=== PATIENT | female | born 1960 | race Asian ===

== ENCOUNTER 2019-08-03 09:30 | Outpatient (RCR) | payer BC, SELFPAY ==
[2019-08-03 09:41] VITALS: BMI 30.1
== END 2019-09-27 23:59 | disposition home or self-care (01) ==
LOC: ANHDMC 09:30
PROVIDERS: PCP Internal Medicine; Visit Provider Internal Medicine
DX: E11.9 Type 2 diabetes mellitus without complications (principal); Z71.89 Other specified counseling; Z71.3 Dietary counseling and surveillance
CPT/HCPCS: 97803; G0108

== ENCOUNTER → 2020-06-26 12:59 | Outpatient (CLI) | payer BC, SELFPAY ==
--- NOTE | ~2020-06-26 | XR_ITS ---
EXAMINATION: XR abdomen/kub 1V INDICATION: Nephrolithiasis TECHNIQUE: Supine views of the abdomen were obtained on 2 radiographs. COMPARISON: 01/24/2018 FINDINGS: An 8 mm stone projects in the upper pole of the left kidney. Bowel contents project over th e right kidney limiting sensitivity for renal stones. No stones are identified along the expected cou rses of the ureters or urinary bladder. There are no dilated loops of bowel. The visualized lung base s are clear. A moderate volume of colonic stool is present. IMPRESSION: 1. Left nephrolithiasis. Reviewed, dictated and finalized at location A. 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 Left nephrolithiasis.
== END ==
PROVIDERS: PCP Internal Medicine; Visit Provider Internal Medicine Nephrology
DX: N20.0 Calculus of kidney (principal)
CPT/HCPCS: 74018

== ENCOUNTER 2020-07-25 08:50 | Outpatient (CLI) | payer BC, SELFPAY ==
--- NOTE | ~2020-07-25 | US_ITS ---
US abdomen complete EXAMINATION: US Abdomen Complete INDICATION: Thrombocytopenia PROCEDURE: Realtime High Resolution abdomen ultrasound. COMPARISON: No prior studies for comparison FINDINGS: Gallbladder within normal limits. No gallstones, pericholecystic fluid, gallbladder wall t hickening or biliary dilatation. Common bile duct measures 4.8 mm. Liver echotexture within normal limits without focal mass. Pancreas within normal limits. Pancreati c tail is obscured by bowel gas. Spleen is unremarkeable. Renal echotexture is within normal limits bilaterally without hydronephrosis, contour deforming mass or renal stone. Right kidney measures 11.3 cm. Left kidney measures 12.2 cm. Visualized aspects of the aorta and IVC are within normal limits. Portal vein is patent. No sonograph ic Portillo's sign indicated by the technologist. IMPRESSION: 1: Normal abdominal ultrasound. Reviewed, dictated and finalized at location B. 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
== END 2020-07-25 08:51 ==
PROVIDERS: Visit Provider Internal Medicine Hematology & Oncology
DX: D69.59 Other secondary thrombocytopenia (principal)
CPT/HCPCS: 76700

== ENCOUNTER → 2020-08-29 13:09 | Outpatient (CLI) | payer BC, SELFPAY ==
--- NOTE | ~2020-08-29 | MM_ITS ---
EXAMINATION: MM screening [facility] BI w yudy HISTORY: Screening mammogram TECHNIQUE: Craniocaudal and mediolateral oblique 3-D tomosynthesis images were obtained and synthetic 2-D images were generated. CAD analysis was submitted and interpreted. COMPARISON: 03/02/2019, 12/28/2017, 08/31/2016 BREAST PARENCHYMAL COMPOSITION: There are scattered areas of fibroglandular density. FINDINGS: There is no evidence of suspicious mass, calcification, or architectural distortion to sugg est malignancy in either breast. There has been no suspicious interval change. IMPRESSION: 1. No mammographic evidence of malignancy. 2. Recommend routine screening mammography in one year. BI-RADS Category 1: Negative Reviewed, dictated and finalized at location A. TS PHOTOGRAPHER
== END ==
PROVIDERS: PCP Internal Medicine; Visit Provider Obstetrics & Gynecology
DX: Z12.31 Encounter for screening mammogram for malignant neoplasm of breast (principal)
CPT/HCPCS: 77063; 77067

== ENCOUNTER → 2020-12-05 14:43 | Outpatient (CLI) | payer BC, SELFPAY ==
--- NOTE | ~2020-12-05 | XR_ITS ---
EXAMINATION: XR abdomen/kub 1V INDICATION: Calculus of kidney TECHNIQUE: Supine views of the abdomen were obtained on 2 radiographs. COMPARISON: 06/26/2020 FINDINGS: There is a 13 mm calcification projecting over the left kidney upper pole. A 4 mm calcifica tion projects over the lower pole of the left kidney. No stones are identified along the expected cou rses of the ureters or in the urinary bladder. A phlebolith is noted in the left pelvis. The bowel ga s pattern is normal. The lung bases are clear. No dilated loops of bowel are identified. 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 IMPRESSION: 1. Calcifications projecting over the left kidney which could reflect stones. Reviewed, dictated and finalized at location B.
== END ==
PROVIDERS: PCP Internal Medicine; Visit Provider Internal Medicine Nephrology
DX: N20.0 Calculus of kidney (principal)
CPT/HCPCS: 74018

== ENCOUNTER → 2021-01-14 09:22 | Outpatient (CLI) | payer BC, SELFPAY ==
--- NOTE | ~2021-01-14 | XR_ITS ---
EXAMINATION:XR_CERV2-3V_CR DATE: 01/14/2021 09:41 INDICATION: Cervical radiculopathy TECHNIQUE: AP, lateral, and odontoid views of the cervical spine are provided. COMPARISON: 01/19/2019 FINDINGS: Straightening Alignment is normal. The odontoid is intact. No fracture is identified. There is mild l oss of intervertebral disc space height at C5-6. The vertebral body heights are maintained. Preverteb ral soft tissues are normal. There is mild facet and uncovertebral joint osteoarthritis of the lower cervical spine. There are surgical changes of right thyroidectomy. Surgical changes are also noted in the right occipital bone. IMPRESSION: 1. Mild cervical spondylosis without acute findings or significant interval change. Reviewed, dictated and finalized at location A. IMPRESSION: 1. Mild cervical spondylosis without acute findings or significant interval heide nge.
== END ==
PROVIDERS: PCP Internal Medicine; Visit Provider Internal Medicine
DX: M47.812 Spondylosis without myelopathy or radiculopathy, cervical region (principal)
CPT/HCPCS: 72040

== ENCOUNTER → 2021-09-22 10:34 | Outpatient (CLI) | payer BC, SELFPAY ==
--- NOTE | ~2021-09-22 | MM_ITS ---
EXAMINATION: MM screening [facility] BI w yudy HISTORY: Screening TECHNIQUE: Craniocaudal and mediolateral oblique 3-D tomosynthesis images were obtained and synthetic 2-D images were generated. CAD analysis was submitted and interpreted. COMPARISON: No prior mammogram is available for comparison at this institution. BREAST PARENCHYMAL COMPOSITION: There are scattered areas of fibroglandular density. FINDINGS: There is no evidence of suspicious mass, calcification, or architectural distortion to sugg est malignancy in either breast. There has been no suspicious interval change. IMPRESSION: 1. No mammographic evidence of malignancy. 2. Recommend routine screening mammography in one year. BI-RADS Category 1: Negative Reviewed, dictated and finalized at location A. 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
== END ==
PROVIDERS: PCP Internal Medicine; Visit Provider Obstetrics & Gynecology
DX: Z12.31 Encounter for screening mammogram for malignant neoplasm of breast (principal)
CPT/HCPCS: 77063; 77067

== ENCOUNTER → 2021-09-22 10:35 | Outpatient (CLI) | payer BC, SELFPAY ==
--- NOTE | ~2021-09-22 | DEXA_ITS ---
Bone Density Report Name: JOE CARRERA Age: 60 Sex: Female Ethnicity: Date of : 1960 Indication: osteopenia; rheumatoid arthritis; postmenopausal Referring Provider: LOVELY MONCADA Study: Bone densitometry was performed. Exam Date: September 22, 2021 Accession number: [id number] Bone Density: Region BMD T-score Z-score Classification AP Spine (L1-L4) 0.820 -2.1 -0.7 Osteopenia Femoral Neck (Left) 0.703 -1.3 0.0 Osteopenia Total Hip (Left) 0.850 -0.8 0.2 Normal Femoral Neck (Right) 0.711 -1.2 0.0 Osteopenia Total Hip (Right) 0.820 -1.0 -0.1 Normal Total Hip Mean 0.835 -0.9 0.1 Normal World Health Organization criteria for BMD impression classify patients as: Normal (T-score at or above -1.0), Osteopenia (T-score between -1.0 and -2.5), or Osteoporosis (T-score at or below -2.5). 10-year Fracture Risk(1): Major Osteoporotic Fracture 5.1% Hip Fracture 0.4% Reported Risk Factors: [place] (), Neck BMD=0.703, BMI=29.3, rheumatoid arthritis (1) FRAX(R) Version 3.08. Fracture probability calculated for an untreated patient. Fracture probability may be lower if the patient has received treatment. Previous Exams: Region Exam Age BMD T-score BMD Change BMD Change Date g/cm2 vs Baseline vs Previous AP Spine(L1-L4) 09/22/2021 60 0.820 -2.1 0.015 0.015 03/06/2019 58 0.806 -2.2 Total Hip(Left) 09/22/2021 60 0.850 -0.8 -0.013 -0.013 03/06/2019 58 0.863 -0.6 Total Hip(Right) 09/22/2021 60 0.820 -1.0 -0.018 -0.018 03/06/2019 58 0.837 -0.9 *Denotes significance at 95% confidence level, LSC for AP Spine = 0.022 g/cm2, LSC for Total Hip = 0.027 g/cm2 Clinical Information Provided by Patient: Has rheumatoid arthritis Has used the following medications: Vitamin D Patient maximum height was 61.2 Menopause Age: 46 Does not regularly consume dairy products Onset of menses at age 14 Number of children 3 Impression: The patient has low bone mass, based on the Total Spine T-score. The patient has an estimated ten-year risk of hip fracture of 0.4% and an estimated ten-year risk of major fracture of 5.1%, based on the WHO FRAX algorithm. No significant bone loss was observed. Discussion: BONE DENSITY IS LOW AT ONE OR MORE SKELETAL SITES. This patient's lowest T-score is low at one or more skeletal sites. It meets the World Health Organization's (WHO) criteria for ?low bon
== END ==
PROVIDERS: Visit Provider Internal Medicine
DX: Z78.0 Asymptomatic menopausal state (principal); M85.88 Other specified disorders of bone density and structure, other site; M85.852 Other specified disorders of bone density and structure, left thigh; M85.851 Other specified disorders of bone density and structure, right thigh
CPT/HCPCS: 77080

== ENCOUNTER → 2021-11-20 13:01 | Outpatient (CLI) | payer BC, SELFPAY ==
--- NOTE | ~2021-11-20 | XR_ITS ---
XR abdomen/kub 1V DATE: 11/20/2021 13:52 INDICATION: Kidney calculus TECHNIQUE: AP projection, 2 views COMPARISON: KUB FINDINGS: Small calcifications project over the upper pole and lower pole left kidney, likely due to left nephrolithiasis. Prominent fecal and gas shadows overlie the right renal silhouette, limiting ev aluation. Noncontrast CT abdomen pelvis would be more sensitive and accurate for detection of urinary tract calculi. The psoas shadows are intact. No visceromegaly is evident. There is a prominent amount fecal material in the right colon. No bowel obstruction is evident. The lung bases are clear. IMPRESSION: Suspected left nephrolithiasis Prominent amount fecal material in the right colon Reviewed, dictated and finalized at Location A. Reviewed, dictated and finalized at location A.
== END ==
PROVIDERS: PCP Internal Medicine; Visit Provider Internal Medicine Nephrology
DX: N20.0 Calculus of kidney (principal)
CPT/HCPCS: 74018

== ENCOUNTER 2021-12-09 00:26 | Day surgery (SDC) | payer BC, SELFPAY ==
[2021-11-24 14:13] VITALS: BMI 29.5
[2021-12-09 07:52] VITALS: BP 149/62; PULSE 60; RESP 18; TEMP 36.3; O2SAT 98
[2021-12-09] MEDS: LACTATED RINGERS 1,000 ML 150 ML IV CONT (08:07)
--- NOTE | 2021-12-09 08:22 | WPDANESEPPF ---
Anes - Initial Pre Proc Eval Procedure: Operation Date: 12/09/21 09:00 Proposed Procedures p Esophagogastroduodenoscopy - Ethan Holden MD Date/Time: 12/09/21 08:22 Surgeon: Ethan Holden MD Pre Op Diagnosis: GERD Patient Data Age: 61 Gender: F Height: 1.55 m Weight: 71.4 kg Last Vital Signs Temp 36.3 C L 12/09/21 07:52 Pulse 60 12/09/21 07:52 Resp 18 12/09/21 07:52 BP 149/62 H 12/09/21 07:52 Pulse Ox 98 12/09/21 07:52 Allergies Allergy/AdvReac Type Severity Reaction Status Date / Time aspirin AdvReac Mild Abdominal Verified 12/09/21 07:50 discomfort Home Medications Medication Instructions Recorded Confirmed Type cholecalciferol (vitamin D3) 100 4,000 unit PO DAILY 08/09/19 11/24/21 History mcg (4,000 unit) capsule leflunomide 20 mg tablet 20 mg PO DAILY 01/14/21 11/24/21 History cyanocobalamin (vitamin B-12) 100 100 mcg PO DAILY 05/16/21 11/24/21 History mcg tablet allopurinol 300 mg tablet See Rx Instructions .ROUTE 07/07/21 11/24/21 Rx .COMPLEX #90 tablet hydrochlorothiazide 12.5 mg tablet 12.5 mg PO DAILY #90 tablet 10/14/21 11/24/21 Rx omeprazole 40 mg capsule,delayed 40 mg PO DAILY #30 cap 10/14/21 11/24/21 Rx release rosuvastatin 20 mg tablet See Rx Instructions .ROUTE 10/29/21 11/24/21 Rx .COMPLEX #90 tablet amlodipine 2.5 mg PO DAILY 11/24/21 11/24/21 History Patient hx anesthesia problems: none Family hx anesthesia problems: none Results Review: All pre-operative results and documents have been reviewed as part of the pre-operative evaluation. [facility] Past Medical History Medical History (Updated 12/08/21 @ 14:03 by Fish Rodriguez DO) Dyslipidemia associated with type 2 diabetes mellitus Essential hypertension GERD (gastroesophageal reflux disease) Megaloblastic anemia Nonalcoholic steatohepatitis Family History Family History Sibling Patient's sister is in good health Patient's brother is in good health Father Family history of malignant neoplasm Patient's father is Mother Family history of malignant neoplasm Patient's mother is Social History Social History Smoking status: Never smoker Second hand tobacco smoke exposure: No Alcohol intake: never Substance use: never Substance use type: does not use Living arrangements: with family Additional living arrangements comments: spouse and daughter Spiritual care concerns: No Anes - Eval Final PreProcedure Day of Procedure 12/09/21 08:22 Patient weight: overweight Heart: regular rate and rhythm Lungs: clear to auscultation and normal air movement Airway: Mallampati scale class II Neurological: alert and oriented Last oral intake: >/= 8 hours ASA classification: III Emergent: no Anesthetic plan: proceed Anesthesia type and monitoring: general GIVS and standard monitoring Results Review: All pre-operative results and documents have been reviewed as part of the pre-operative evaluation. Informed Consent: The patient's anesthetic plan and its attendant risks and benefits were discussed with the patient/family/POA. Questions were solicited and answers provided to the satisfaction of the patient/family/POA.
--- NOTE | 2021-12-09 08:26 | WPDGICN ---
Assessment and Plan Assessment and plan (1) GERD (gastroesophageal reflux disease): Qualifiers: Esophagitis presence: esophagitis presence not specified Qualified Code(s): K21.9 - Gastro-esophageal reflux disease without esophagitis Code(s): K21.9 - Gastro-esophageal reflux disease without esophagitis Status: Acute Assessment and Plan: Patient has vague abdominal pain along with substernal burning after eating that appears to suggest acid reflux. She has had a good response to omeprazole 40mg p.o. daily. An EGD is requested will be performed. Recommend long-term placing patient on long list amount of medications that work. She may benefit from omeprazole 20mg p.o. daily or alternatively famotidine 20mg p.o. daily further recommendations will be given after endoscopy. Additional Plan Because of patient's age screening colonoscopy electively at 10 year intervals is advised initially. This can be arranged electively. If not already accomplished. GI Consult Note Consult date/time: 12/09/21 08:26 HPI: Tiny Garcia is a 61 year old female Presents for EGD. Patient reports for several months has had substernal burning with eating. She has rather diffuse abdominal pain that hurts at various sports in her abdomen. She also will notice some nausea. She took [id number] antacids for several days and about a month and a half ago was started on omeprazole 40mg p.o. daily. This has helped alleviate much of her discomfort. Patient denies any dysphagia weight loss or bleeding. Her family history is noncontributory. Review of Systems Review of Systems: All systems reviewed & are unremarkable except as noted in HPI and below PMFSH Past Medical History Medical History (Updated 12/08/21 @ 14:03 by Fish Rodriguez DO) Dyslipidemia associated with type 2 diabetes mellitus Essential hypertension GERD (gastroesophageal reflux disease) Megaloblastic anemia Nonalcoholic steatohepatitis Family History Family History Sibling Patient's sister is in good health Patient's brother is in good health Father Family history of malignant neoplasm Patient's father is Mother Family history of malignant neoplasm Patient's mother is Social History Social History Smoking status: Never smoker Second hand tobacco smoke exposure: No Alcohol intake: never Substance use: never Substance use type: does not use Living arrangements: with family Additional living arrangements comments: spouse and daughter Spiritual care concerns: No Meds Home Medications and Allergies Home Medications Medication Instructions Recorded Confirmed Type cholecalciferol (vitamin D3) 100 4,000 unit PO DAILY 08/09/19 11/24/21 History mcg (4,000 unit) capsule leflunomide 20 mg tablet 20 mg PO DAILY 01/14/21 11/24/21 History cyanocobalamin (vitamin B-12) 100 100 mcg PO DAILY 05/16/21 11/24/21 History mcg tablet allopurinol 300 mg tablet See Rx Instructions .ROUTE 07/07/21 11/24/21 Rx .COMPLEX #90 tablet hydrochlorothiazide 12.5 mg tablet 12.5 mg PO DAILY #90 tablet 10/14/21 11/24/21 Rx omeprazole 40 mg capsule,delayed 40 mg PO DAILY #30 cap 10/14/21 11/24/21 Rx release rosuvastatin 20 mg tablet See Rx Instructions .ROUTE 10/29/21 11/24/21 Rx .COMPLEX #90 tablet amlodipine 2.5 mg PO DAILY 11/24/21 11/24/21 History Allergies Allergy/AdvReac Type Severity Reaction Status Date / Time aspirin AdvReac Mild Abdominal Verified 12/09/21 07:50 discomfort Vital Signs Vital Signs - 24 hr 12/09/21 07:52 Temperature 97.3 F L Pulse Rate 60 Respiratory Rate 18 Blood Pressure 149/62 H Pulse Oximetry 98 Exam Narrative: Physical exam reveals patient be alert. Vital signs stable. HEENT exam is unremarkable. Patient is anict
[2021-12-09 09:18] VITALS: BP 123/73; PULSE 58; RESP 22; O2SAT 96
[2021-12-09 09:28] VITALS: BP 137/74; PULSE 58; RESP 17; O2SAT 97
[2021-12-09 09:38] VITALS: BP 158/85; PULSE 57; RESP 22; O2SAT 98
== END 2021-12-09 09:48 | disposition home or self-care (01) ==
PROVIDERS: PCP Internal Medicine; Visit Provider Internal Medicine Gastroenterology
PROC: 0DJ08ZZ Inspection of Upper Intestinal Tract, Via Natural or Artificial Opening Endoscopic (ICD-10-PCS; CPT 43235; principal; 2021-12-09 09:00)
DX: K21.9 Gastro-esophageal reflux disease without esophagitis (principal); K31.84 Gastroparesis; I10 Essential (primary) hypertension; E11.9 Type 2 diabetes mellitus without complications; K75.81 Nonalcoholic steatohepatitis (NASH); E78.5 Hyperlipidemia, unspecified
CPT/HCPCS: 43239; 87081; J2704; J7120

== ENCOUNTER 2022-02-01 11:38 | Emergency (ER) | payer BC, SELFPAY ==
[2022-02-01] VITALS (28 sets, daily range): BP systolic 97–167; BP diastolic 61–90; PULSE 75–85; RESP 16–32; TEMP 36.8; O2SAT 90–99
--- NOTE | ~2022-02-01 | CT_ITS ---
EXAMINATION: CT abdomen pelvis wo con DATE: 02/01/2022 17:30 INDICATION: abd pain TECHNIQUE: Computed tomography (CT) of the abdomen and pelvis was performed without intravenous contr ast. Automated exposure control and iterative reconstruction technique were employed. The dose-length product was 498.80 mGy-cm. COMPARISON: 01/11/2018. FINDINGS: Lower thorax: Cardiomegaly. Liver: Normal. Biliary/Gallbladder: Cholelithiasis. No bile duct dilation. Pancreas: No mass or duct dilation. Spleen: Normal. Adrenals:Right adrenal myelolipoma. Kidneys: Bilateral medullary nephrocalcinosis. GI tract: No small or large bowel dilation. Appendix not visualized Mesentery/Peritoneum: No ascites, mass, or free air. Retroperitoneum: No mass. Atherosclerotic calcifications. Pelvis: Pelvic organs are within normal limits. Soft Tissues: Soft tissues and body wall unremarkable. Bones: No acute osseous finding. IMPRESSION: No acute abdominopelvic process detected. Reviewed, dictated and finalized at location K.
--- NOTE | ~2022-02-01 | XR_ITS ---
EXAMINATION: XR chest 1V portable Exam Date/Time: 02/01/2022 12:50 CDT HISTORY: cough COVID + FEVER BODY ACHES Comparison: None available. RESULT: Lines, tubes, and devices: None. Lungs and pleura: Clear. Cardiomediastinal silhouette: Unremarkable cardiomediastinal silhouette. Other: No acute osseous or upper abdominal finding. IMPRESSION: No acute cardiopulmonary process. Reviewed, dictated and finalized at location K.
[2022-02-01] MEDS: ONDANSETRON INJ 4 MG/2 ML VIAL IV PUSH (12:46)
[2022-02-01] MEDS: SODIUM CHLORIDE 0.9% IV 1,000 ML 999 ML IV CONT (12:47)
--- NOTE | 2022-02-01 12:49 | ED.GENADULT ---
HPI - General Adult General Chief complaint: Upper Respiratory Infection Stated complaint: COVID Positive Time Seen by Provider: 02/01/22 12:01 Source: RN notes reviewed History of Present Illness HPI narrative: Patient presents emergency department from home for COVID-19. Patient states she began to feel sick yesterday with a cough that is nonproductive as well and has a fever bilateral ear pain and nausea states she took a home COVID test yesterday and it was positive and also states several members of her family tested positive patient states that she came today for further evaluation as she does have several chronic medical conditions she states that she last took Tylenol at approximately 745 this morning she denies any chest pain or shortness of breath does states she has nausea but denies any abdominal pain vomiting or diarrhea. Patient also notes a mild frontal headache with symptoms Related Data Home Medications Medication Instructions Recorded Confirmed cholecalciferol (vitamin D3) 100 4,000 unit PO DAILY 08/09/19 11/24/21 mcg (4,000 unit) capsule leflunomide 20 mg tablet 20 mg PO DAILY 01/14/21 11/24/21 cyanocobalamin (vitamin B-12) 100 100 mcg PO DAILY 05/16/21 11/24/21 mcg tablet amlodipine 2.5 mg tablet 2.5 mg PO DAILY 11/24/21 11/24/21 calcium carbonate 600 mg calcium 600 mg PO DAILY 01/07/22 (1,500 mg) tablet (Calcium) magnesium oxide 200 mg PO BID 01/07/22 potassium citrate 10 mEq (1,080 2,160 mg PO BID 01/07/22 mg) tablet,extended release Allergies Allergy/AdvReac Type Severity Reaction Status Date / Time aspirin AdvReac Mild Abdominal Verified 02/01/22 11:49 discomfort Review of Systems Review of Systems: Gen.: Reports fevers and malaise Eyes: Denies eye pain or visual change ENT: Reports nasal congestion and bilateral ear pain Respiratory: Denies shortness of breath reports cough CV: Denies chest pain or palpitations GI: Denies abdominal pain emesis or diarrhea reports nausea Musculoskeletal: Denies back pain or muscle pain Neuro: Denies numbness, tingling, weakness or focal weakness, headache Skin: Denies rash Except as documented, all other systems reviewed and negative PMFSH Past Medical History Medical History Dyslipidemia associated with type 2 diabetes mellitus Essential hypertension GERD (gastroesophageal reflux disease) Megaloblastic anemia Nonalcoholic steatohepatitis Family History Family History Sibling Patient's sister is in good health Patient's brother is in good health Father Family history of malignant neoplasm Patient's father is Mother Family history of malignant neoplasm Patient's mother is Social History Social History Smoking status: Never smoker Second hand tobacco smoke exposure: No Alcohol intake: never Substance use: never Substance use type: does not use Additional living arrangements comments: spouse and daughter Spiritual care concerns: No Exam Narrative: APPEARANCE: No acute distress, nontoxic, resting in bed EYES: EOMI HEENT: Normocephalic, atraumatic, TMs clear bilaterally RESPIRATORY: No respiratory distress Clear to auscultation bilaterally with no rhonchi wheezing or rales. CARDIOVASCULAR: Regular rate and rhythm without murmurs rubs or gallops. ABDOMINAL: Soft, nontender, nondistended, no rebound or guarding MUSCULOSKELETAl: Moves all extremities. No clubbing, cyanosis or edema. NEURO: Awake and alert. Following commands, speech normal, no focal deficits SKIN:: Warm, dry. No rashes lesions or abrasions PSYCHIATRIC: Normal affect/mood, Course Course Emergency Course: Patient now noting some increased abdominal pain tender in bilateral upper abdomen will give Toradol and CT abdomen pelvis Patient stat
[2022-02-01 12:52] LABS: Basophils Percent Auto 0.5 % (0.2-1.2); Eosinophils Absolute Auto 0.1 K/mm3 (0-0.3); Eosinophils Percent Auto 1.2 % (0-4.4); Hemoglobin 12.7 g/dL (12.0-15.0); Immature Granulocyte Absolute 0.02 K/mm3 (0.00-0.031); Immature Granulocyte Percent A 0.3 % (0-0.5); Lymphocytes Absolute Auto 0.78 K/mm3 (0.9-3.2); Lymphocytes Percent Auto 13.2 % (18.3-44.2); Mean Corpuscular HGB Conc 32.6 g/dl (32-36); Mean Corpuscular Hemoglobin 29.7 pg (26-34); Mean Corpuscular Volume 91.3 fl (80-100); Mean Platelet Volume 11.1 fl (7.4-10.4); Monocytes Absolute Auto 0.8 K/mm3 (0.1-0.6); Monocytes Percent Auto 13.9 % (2.6-8.5); Neutrophils Absolute Auto 4.2 K/mm3 (1.3-6.7); Neutrophils Percent Auto 70.9 % (45.5-73.1); Platelet Count Result 81 k/mm3 (150-375); Red Blood Count 4.27 M/mm3 (4.2-5.4); Red Cell Distribution Width 14.4 % (11.5-14.5); White Blood Count 5.9 K/mm3 (4.5-10.0)
[2022-02-01 13:02] LABS: Prothrombin Time 12.5 Seconds (11.1-14.7)
[2022-02-01 13:03] LABS: Alanine Aminotransferase 31 U/L (6-35); Albumin Level 4.3 g/dL (3.5-5.1); Alkaline Phosphatase 63 U/L (38-126); Anion Gap 5 mmol/L (8-16); Aspartate Amino Transferase 42 U/L (14-36); Bilirubin,Total 1.7 mg/dL (0.2-1.3); Blood Urea Nitrogen 12 mg/dL (7-17); Carbon Dioxide 30 mmol/L (22-30); Chloride 99 mmol/L (98-107); Estimated CRCL calculation 90 ml/min; Estimated Glomerular Filt Rate > 60; Glucose 134 mg/dL (65-110); Lactate Dehydrogenase 573 U/L (313-618); Partial Thromboplastin Time 28.7 SECONDS (22.3-36.8); Potassium 3.3 mmol/L (3.4-5.0); Sodium 134 mmol/L (137-145)
[2022-02-01] MEDS: POTASSIUM CHLORIDE 20 MEQ TABLET PO (14:13)
[2022-02-01] MEDS: KETOROLAC 30 MG/ML VIAL (*BKC) IV PUSH (17:08)
[2022-02-01 17:42] LABS: Lipase 93 U/L (23-300)
[2022-02-01 17:45] LABS: Appearance Urine Clear (Clear); Bilirubin Urine Negative (Negative); Blood Urine Negative (Negative); Color Urine Yellow (Yellow); Glucose Urine UA Negative (Negative); Ketones Urine Negative (Negative); Leukocyte Esterase Ur Negative LEU/UL (Negative); Nitrate Urine Negative (Negative); Protein Urine Negative (Negative); Specific Grav Ur 1.015 (1.001-1.035); Urobilinogen Urine 0.2 mg/dL (<2.0); pH Urine 7.5 (5.0-9.0)
[2022-02-01 17:47] LABS: Add Urine Microscopic? NO
[2022-02-01] MEDS: ALBUTEROL SULFATE (*SP) AEROSOL 1 PUFF 2 PUFF INHALATION (18:45)
== END 2022-02-01 19:36 | disposition home or self-care (01) ==
PROVIDERS: Emergency Provider Emergency Medicine; PCP Internal Medicine
DX: U07.1 COVID-19 (principal); E11.69 Type 2 diabetes mellitus with other specified complication; E78.5 Hyperlipidemia, unspecified; I10 Essential (primary) hypertension; K21.9 Gastro-esophageal reflux disease without esophagitis; D53.1 Other megaloblastic anemias, not elsewhere classified; K75.81 Nonalcoholic steatohepatitis (NASH)
CPT/HCPCS: 36415; 71045; 74176; 80053; 81003; 83615; 83690; 85025; 85610; 85730; 86140; 96361; 96374; 96375; 99284; A9270; J1885; J2405; J7030

== ENCOUNTER 2022-02-02 14:38 | Outpatient (RCR) | payer BC, SELFPAY ==
[2022-02-02] MEDS: ACETAMINOPHEN 325 MG TABLET 650 MG PO (14:56)
[2022-02-02] MEDS: FAMOTIDINE 20 MG TABLET PO (14:56)
[2022-02-02] MEDS: diphenhydrAMINE HCl CAP 25 MG CAPSULE PO (14:56)
[2022-02-02 14:59] VITALS: BP 131/69; PULSE 77; TEMP 36.1; O2SAT 98
[2022-02-02] MEDS: BEBTELOVIMAB 175 MG/2 ML VIAL IV PUSH (15:11)
[2022-02-02 15:47] VITALS: BP 132/58; PULSE 73; O2SAT 98
== END 2022-02-02 16:00 | disposition home or self-care (01) ==
LOC: AMCINF 14:38
PROVIDERS: Referring Provider Internal Medicine; Visit Provider Internal Medicine Hematology & Oncology
DX: U07.1 COVID-19 (principal)
CPT/HCPCS: A9270; M0222; Q0222

== ENCOUNTER 2022-02-17 07:33 | Outpatient (CLI) | payer BC, SELFPAY ==
--- NOTE | ~2022-02-17 | NM_ITS ---
EXAM: NM gastric emptying study DATE: 02/17/2022 13:10 CDT INDICATION: Functional dyspepsia TECHNIQUE: A gastric emptying study was performed using the methodology of Shawn NUÑEZ, et al. J Nucl Med 2007; 48:568-572. The patient was given a meal consisting of 2 scrambled eggs labeled with 0.94 mCi Tc-99m sulfur colloid, 2 slices of toast, two packages of jam, and approximately 120 mL of water. Simultaneous anterior and posterior 1-min images of the abdomen were obtained with the patient supin e at multiple time points over a total period of 4 hours. The geometric mean of anterior and posterio r views was determined, and the percentage retention was calculated for each time point. COMPARISON: CT dated 02/01/2022. FINDINGS: Gastric retention of the radiotracer-labeled meal was 56%, 36%, and 10% at the 1-hour, 2-h our, and 4-hour time points, respectively. With this technique, apparent rapid gastric emptying is mancera ggested by <30% gastric retention at 1 hour. Delayed gastric emptying is defined by gastric retention of >90% at 1 hour, >60% retention at 2 hours, or >10% retention at 4 hours. IMPRESSION: 1. Normal gastric emptying. Reviewed, dictated and finalized at location A. IMPRESSION: 1. Normal gastric emptying.
== END 2022-02-17 07:34 | disposition home or self-care (01) ==
PROVIDERS: PCP Internal Medicine; Visit Provider Internal Medicine Gastroenterology
DX: K30 Functional dyspepsia (principal)
CPT/HCPCS: 78264; A9541

== ENCOUNTER → 2022-06-08 12:12 | Outpatient (CLI) | payer BC, SELFPAY ==
--- NOTE | ~2022-06-08 | XR_ITS ---
EXAMINATION: XR abdomen/kub 1V INDICATION: Bilateral kidney stones, follow-up TECHNIQUE: Supine views of the abdomen were obtained on 2 radiographs. COMPARISON: 11/20/[address] dated 02/01/2022 FINDINGS: Bilateral medullary nephrocalcinosis seen on CT is not well demonstrated. There is a 3 mm s tone of the left kidney lower pole. The bowel gas pattern is normal. The visualized lung bases are cl ear. IMPRESSION: 1. Left nephrolithiasis. Reviewed, dictated and finalized at location A. IMPRESSION: 1. Left nephrolithiasis.
== END ==
PROVIDERS: PCP Internal Medicine; Visit Provider Internal Medicine Nephrology
DX: N20.0 Calculus of kidney (principal); I10 Essential (primary) hypertension
CPT/HCPCS: 74018

== ENCOUNTER 2022-07-07 10:02 | Outpatient (CLI) | payer BC, SELFPAY ==
--- NOTE | 2022-07-07 11:30 | NEURO_ITS ---
Impression: # Complains of right upper extremity pain. History of Trigeminal neuralgia. # Normal nerve conduction study. # Normal needle/EMG exam including biceps and triceps. # Clinical correlation recommended. Motor Nerve Conduction Upper Extremities Median Nerve Conduction Velocity (m/sec) Terminal Latency (msec) Response Voltage(mV) Elbow-Wrist Wrist Elbow Wrist Right 58 2.8 5 6 Left Ulnar Nerve Conduction Velocity (m/sec) Terminal Latency (msec) Response Voltage(mV) Above Elbow Below Elbow Wrist Above Elbow Below Elbow Wrist Right 58 2.3 3 5 Left F-Wave Latency Median (ms) Ulnar (ms) Right 24.7 25.4 Left Sensory Nerve Conduction Upper Extremities Median Nerve Stimulation Terminal Latency (msec) Wrist/Digit Response Voltage (uV) Wrist Right 2.8/2.8 41/56 Left Ulnar Nerve Stimulation Terminal Latency (msec) Wrist/Digit Response Voltage (uV) Wrist Right 2.1 41 Left Radial Nerve Terminal Latency (msec) Response Voltage(mV) Right 2.0 21 Left Left Right Muscles Examined Fibrillation Fasciculation Scarcity Voltage Duration Left Right Left Right Left Right Left Right Left Right X Deltoid X Biceps X Brachioradialis X Triceps X Pronator Teres X Ext Indicis X Ext Digitorum X Abd Poll Brev X 1st Dorsal Interosseus X Abd Dig Min MTDD
== END 2022-07-07 10:03 | disposition home or self-care (01) ==
PROVIDERS: PCP Internal Medicine; Visit Provider Internal Medicine
DX: R20.2 Paresthesia of skin (principal)
CPT/HCPCS: 95886; 95909

== ENCOUNTER 2022-11-09 09:57 | Outpatient (CLI) | payer BC, SELFPAY ==
--- NOTE | 2022-11-09 10:13 | ECG_ITS ---
Measurements Intervals [place] Rate: 64 P: 59 [place]: 208 QRS: -11 QRSD: 80 T: 14 QT: 422 QTc: 438 Interpretive Statements SINUS RHYTHM VENTRICULAR PREMATURE COMPLEXES POOR R WAVE PROGRESSION, ANTERIOR LEADS CONSIDER INFERIOR INFARCT, AGE INDETERMINATE BASELINE WANDER- AVR, AVL, AVF, V1, V4-V6 ABNORMAL ECG NO PREVIOUS ECG AVAILABLE FOR COMPARISON Electronically Signed On 11-09-2022 11:09:06 CDT by Gregor Guzman D.O.
--- NOTE | 2022-11-11 15:19 | WPDHOLTEREM ---
Holter/Event Monitor Holter/Event Monitor Date of procedure: 11/09/22 Holter/Event Procedure: 48 Hr Holter Monitor Indications: Palpitations Conclusion: 1. 48 hour holter monitor on 11/09/22. 2. Predominant rhythm is sinus rhythm. HR range 51-101 bpm; average HR 70 bpm. 3. There are 59 premature supraventricular complexes. There is 1 atrial tachycardia at 140 bpm lasting 6 beats. 4. There are 3,579 premature ventricular complexes and 40 ventricular trigeminy. No ventricular tachycardia. 5. No sinoatrial or atrioventricular blocks. No significant pauses greater than 2 seconds. 6. Patient reports symptoms of hard beats which demonstrate sinus rhythm, HR range 58-81 bpm and 1 PVC.
== END 2022-11-09 09:58 | disposition home or self-care (01) ==
PROVIDERS: PCP Internal Medicine; Visit Provider Nurse Practitioner Family
DX: R00.2 Palpitations (principal); R94.31 Abnormal electrocardiogram [ECG] [EKG]
CPT/HCPCS: 93005; 93225; 93226

== ENCOUNTER → 2022-12-08 12:21 | Outpatient (CLI) | payer BC, SELFPAY ==
--- NOTE | ~2022-12-08 | MM_ITS ---
EXAMINATION: MM screening [facility] BI w yudy HISTORY: Screening mammogram TECHNIQUE: Craniocaudal and mediolateral oblique 3-D tomosynthesis images were obtained and synthetic 2-D images were generated. CAD analysis was submitted and interpreted. COMPARISON: 09/22/2021, 08/29/2020, 03/02/2019 BREAST PARENCHYMAL COMPOSITION: There are scattered areas of fibroglandular density. FINDINGS: No suspicious mass, calcification, or architectural distortion are identified in either alex ast to suggest malignancy. There has been no suspicious interval change. IMPRESSION: 1. No mammographic evidence of malignancy. 2. Recommend routine screening mammography in one year. BI-RADS Category 1: Negative Reviewed, dictated and finalized at location A.
== END ==
PROVIDERS: PCP Internal Medicine; Visit Provider Obstetrics & Gynecology
DX: Z12.31 Encounter for screening mammogram for malignant neoplasm of breast (principal)
CPT/HCPCS: 77063; 77067

== ENCOUNTER 2023-01-04 14:29 | Outpatient (CLI) | payer BC, SELFPAY ==
--- NOTE | ~2023-01-04 | XR_ITS ---
EXAMINATION: XR mandible min 4V DATE: 01/04/2023 15:03 INDICATION: Right jaw pain. TECHNIQUE: 6 views of the mandible were obtained. COMPARISON: Sinuses CT 09/02/2016 FINDINGS: Bone alignment is normal. No fracture. The temporomandibular joints are unremarkable. There are changes of right occipital craniotomy. IMPRESSION: 1. No etiology for the patient's symptoms. Reviewed, dictated and finalized at location A.
== END 2023-01-04 14:30 ==
LOC: MICIMG 14:33
PROVIDERS: PCP Family Medicine; Visit Provider Family Medicine
DX: R68.84 Jaw pain (principal); M54.10 Radiculopathy, site unspecified
CPT/HCPCS: 70110

== ENCOUNTER → 2023-04-03 10:33 | Outpatient (CLI) | payer BC, SELFPAY ==
--- NOTE | ~2023-04-03 | MR_ITS ---
EXAMINATION: MR shoulder RT wo con DATE: 04/03/2023 11:43 INDICATION: Right shoulder pain. TECHNIQUE: Magnetic resonance imaging (MRI) of the right shoulder was performed without intravenous c ontrast. Sequences included axial PD-weighted FS FSE, coronal oblique PD-weighted FS FSE and T2-weigh sacha FS FSE, and sagittal oblique T2-weighted FS FSE and T1-weighted FSE. COMPARISON: None. FINDINGS: Coracoacromial arch: The acromion undersurface is curved in morphology (type II). There is moderate acromioclavicular join t osteoarthritis. There is mild subacromial/subdeltoid bursitis. Rotator cuff: There is severe anterior supraspinatus tendinopathy at its distal attachment. There is mild infraspin atus tendinopathy. Teres minor tendon is normal. Subscapularis tendon is normal. There is no asymmetr ic fatty atrophy of the rotator cuff muscle bellies. Biceps tendon and glenoid labrum: Biceps tendon is in bicipital groove. Intra-articular biceps tendon is normal. The glenoid labrum is normal. Fluid: There is a small glenohumeral joint effusion. Bones/cartilage: Glenoid cartilage is normal. Humeral head cartilage is normal. IMPRESSION: 1. Focal severe tendinopathy of anterior supraspinatus tendon. 2. Moderate acromioclavicular joint osteoarthritis. 3. Mild subacromial/subdeltoid bursitis. 4. Small glenohumeral joint effusion. Reviewed, dictated and finalized at location E.
== END ==
PROVIDERS: PCP Internal Medicine Hematology & Oncology; Visit Provider Nurse Practitioner Family
DX: N20.0 Calculus of kidney (principal); I10 Essential (primary) hypertension; M75.51 Bursitis of right shoulder; M19.011 Primary osteoarthritis, right shoulder; M25.411 Effusion, right shoulder
CPT/HCPCS: 73221

== ENCOUNTER 2023-08-19 14:11 | Outpatient (CLI) | payer BC, SELFPAY ==
--- NOTE | ~2023-08-19 | XR_ITS ---
EXAMINATION: XR chest 2V 08/19/2023 15:23 INDICATION: Dyspnea PROCEDURE: 2 view chest COMPARISON: 02/01/2022 FINDINGS: The lungs are clear. The cardiomediastinal silhouette is within normal limits. There are no pleural effusions. There is no pneumothorax suspected. IMPRESSION: 1: NO ACUTE CARDIOPULMONARY DISEASE. Reviewed, dictated and finalized at location L. O STUDIO ASSISTANT
== END 2023-08-19 14:12 ==
LOC: MICIMG 14:12
PROVIDERS: PCP Family Medicine; Visit Provider Family Medicine
DX: R06.00 Dyspnea, unspecified (principal)
CPT/HCPCS: 71046

== ENCOUNTER 2023-08-19 14:14 | Outpatient (CLI) | payer BC, SELFPAY ==
--- NOTE | ~2023-08-19 | XR_ITS ---
EXAMINATION: XR foot RT min 3V, XR foot LT min 3V DATE: 08/19/2023 INDICATION: Rheumatoid arthritis TECHNIQUE: 1. Dorsoplantar, two oblique and lateral views of the left foot were obtained. 2. Dorsoplantar, two oblique and lateral views of the right foot were obtained. COMPARISON: None. FINDINGS: Bone alignment is normal at both feet. No fractures. Moderate sized bilateral Achilles and plantar ca lcaneal spurs. Mild osteoarthritis at the bilateral first metatarsophalangeal and a few bilateral tar sometatarsal and interphalangeal joints. No erosions to suggest inflammatory arthritis. Soft tissues are unremarkable. No ankle joint effusions. IMPRESSION: 1. Typical pattern of mild particular osteoarthritis at the bilateral mid and forefeet. No erosions t o suggest inflammatory arthritis such as rheumatoid arthritis. 2. Moderate sized bilateral Achilles and plantar calcaneal spurs. Reviewed, dictated and finalized at location A. 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 Typical pattern of mild particular osteoarthritis at the bilateral mid and f orefeet. No erosions to suggest inflammatory arthritis such as rheumatoid arthr itis. 2. Moderate sized bilateral Achilles and plantar calcaneal spurs.
--- NOTE | ~2023-08-19 | XR_ITS ---
EXAMINATION: XR hand LT min 3V, XR hand RT min 3V, XR wrist LT 2V, XR wrist RT 2V DATE: 08/19/2023 15:22 INDICATION: Rheumatoid arthritis TECHNIQUE: 1. Posteroanterior and lateral views of the left wrist were obtained. 2. Dorsal palmar, oblique and lateral views of the left hand were obtained. 3. Posteroanterior and lateral views of the right wrist were obtained. 4. Dorsal palmar, oblique and lateral views of the right hand were obtained. COMPARISON: Bilateral wrist radiographs dated 01/19/2019 and left hand radiographs dated 10/12/2018 FINDINGS: Alignment of the bilateral hands and wrists is normal. No fracture identified. There is asymmetric o steoarthritis with moderate nonuniform joint space narrowing at the left radiocarpal and midcarpal madiha ints with mild nonuniform joint space narrowing at the right wrist and metacarpal joints. Additional mild osteoarthritis with mild joint space narrowing and small marginal osteophytes at the bilateral t riscaphe and first carpal metacarpal joints. Additional mild to moderate polyarticular osteoarthritis with joint space narrowing and small marginal osteophytes at each of the bilateral metacarpophalange al and interphalangeal joints most prominent at the right third and fourth metacarpophalangeal joints and a few of the interphalangeal joints. Subarticular lucency with thin sclerotic margins along the volar rim of the left radius most likely degenerative subchondral cyst although differential would in clude a chronic erosion. There are however no other erosions particularly at the metacarpophalangeal joints to suggest inflammatory arthritis such as rheumatoid. Soft tissues are unremarkable. IMPRESSION: 1. No significant interval change in mild to moderate polyarticular osteoarthritis at the bilateral h ands and wrists most prominent at the left wrist and carpus and a few of the bilateral metacarpophala ngeal and interphalangeal joints. No erosions particularly at the metacarpophalangeal joints to more specifically suggest underlying rheumatoid arthritis. Reviewed, dictated and finalized at location A. 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 No significant interval change in mild to moderate polyarticular osteoarthri tis at the bilateral hands and wrists most prominent at the left wrist and carp us and a few of the bilateral metacarpophalangeal and interphalangeal joints. N o erosions particularly at the metacarpophalangeal joints to more specifically suggest underlying rheumatoid arthritis. IMPRESSION: 1. No significant interval change in mild to moderate polyarticular osteoarthri tis at the bilateral hands and wrists most prominent at the left wrist and carp us and a few of the bilateral metacarpophalangeal and interphalangeal joints. N o erosions particularly at the metacarpophalangeal joints to more specifically suggest underlying rheumatoid arthritis. IMPRESSION: 1. No significant interval change in mild to moderate polyarticular osteoarthri tis at the bilateral hands and wrists most prominent at the left wrist and carp us and a few of the bilateral metacarpophalangeal and interphalangeal joints. N o erosions particularly at the metacarpophalangeal joints to more specifically suggest underlying rheumatoid arthritis.
--- NOTE | ~2023-08-19 | XR_ITS ---
XR cervical spine 4-5V 08/19/2023 15:21 Indication: Rheumatoid arthritis Procedure: 6 views cervical spine including flexion/extension Comparison: 01/14/2021 Findings: Vertebral body heights are maintained. There is disc narrowing at C5-6 with ventral osteoph ytes at this level. No fracture or traumatic malalignment. No alteration of alignment with flexion/ex tension. No prevertebral soft tissue swelling. Odontoid process within normal limits. Impression: 1: Mild cervical spondylosis. Reviewed, dictated and finalized at location A. ER Impression: 1: Mild cervical spondylosis.
== END 2023-08-19 14:15 ==
LOC: MICIMG 14:15
PROVIDERS: PCP Internal Medicine Rheumatology; Visit Provider Internal Medicine Rheumatology
DX: M06.9 Rheumatoid arthritis, unspecified (principal); M47.892 Other spondylosis, cervical region; M19.071 Primary osteoarthritis, right ankle and foot; M19.072 Primary osteoarthritis, left ankle and foot; M77.31 Calcaneal spur, right foot; M77.32 Calcaneal spur, left foot
CPT/HCPCS: 72050; 73100; 73130; 73630

== ENCOUNTER 2024-01-20 07:47 | Outpatient (CLI) | payer BC, SELFPAY ==
--- NOTE | ~2024-01-20 | MR_ITS ---
EXAMINATION: MR cervical spine wo con DATE: 01/20/2024 08:28 INDICATION: Radiculopathy, cervical region. TECHNIQUE: Magnetic resonance imaging (MRI) of the cervical spine was performed without intravenous c ontrast. COMPARISON: Cervical spine radiographs 08/19/2023 FINDINGS: Bone alignment is normal. Vertebral body heights are normal. There is mildly decreased disc height at C5-C6. The spinal cord signal intensity is normal. The following disc levels are specifica lly discussed: C2-C3: There is a central extrusion. There is no uncovertebral joint osteoarthritis. There is moderat e bilateral facet joint osteoarthritis. There is no neural foraminal stenosis. There is no central ca nal stenosis. C3-C4: There is a right central extrusion. There is no uncovertebral joint osteoarthritis. There is m ild bilateral facet joint osteoarthritis. There is mild right neural foraminal stenosis. There is no central canal stenosis. C4-C5: The disc is bulging. There is mild bilateral uncovertebral joint osteoarthritis. There is aroldo re right and mild left facet joint osteoarthritis. There is moderate right and mild left neural jairo inal stenosis. There is mild central canal stenosis. C5-C6: The disc is bulging. There is severe right and moderate left uncovertebral joint osteoarthriti s. There is mild bilateral facet joint osteoarthritis. There is moderate right and mild left neural f oraminal stenosis. There is mild central canal stenosis. C6-C7: There is a central protrusion. There is mild left uncovertebral joint osteoarthritis. There is mild left facet joint osteoarthritis. There is mild left neural foraminal stenosis. There is mild ce ntral canal stenosis. C7-T1: The disc does not extend beyond the endplate margins. There is no uncovertebral joint osteoart hritis. There is moderate right facet joint osteoarthritis. There is mild right neural foraminal sten osis. There is no central canal stenosis. IMPRESSION: 1. Moderate cervical spondylosis. Reviewed, dictated and finalized at location A.
== END 2024-01-20 07:48 ==
PROVIDERS: PCP Family Medicine; Visit Provider Family Medicine
DX: M43.02 Spondylolysis, cervical region (principal)
CPT/HCPCS: 72141

== ENCOUNTER 2024-03-23 14:21 | Outpatient (CLI) | payer BC, SELFPAY ==
--- NOTE | ~2024-03-23 | MM_ITS ---
EXAMINATION: MM screening [facility] BI w yudy HISTORY: Screening TECHNIQUE: Craniocaudal and mediolateral oblique 3-D tomosynthesis images were obtained and synthetic 2-D images were generated. CAD analysis was submitted and interpreted. COMPARISON: Comparison to multiple prior studies sequentially, with oldest reviewed study dated 04/2017. BREAST PARENCHYMAL COMPOSITION: Not dense: There are scattered areas of fibroglandular density. FINDINGS: There is no evidence of suspicious mass, calcification, or architectural distortion to sugg est malignancy in either breast. There has been no suspicious interval change. IMPRESSION: 1. No mammographic evidence of malignancy. 2. Recommend routine screening mammography in one year. BI-RADS Category 1: Negative Reviewed, dictated and finalized at location B.
== END 2024-03-23 14:22 ==
LOC: MICIMG 14:23
PROVIDERS: PCP Family Medicine; Visit Provider Obstetrics & Gynecology
DX: Z12.31 Encounter for screening mammogram for malignant neoplasm of breast (principal)
CPT/HCPCS: 77063; 77067

== ENCOUNTER 2024-12-05 02:20 | Day surgery (SDC) | payer BC, SELFPAY ==
[2024-11-28 14:20] VITALS: BMI 29.5
--- OUTSIDE RECORDS SUMMARY | 2024-12-05 02:24 | XMS_ITS | Clinical Summary ---
Author Organization [facility] Address [address] [place] [address] Care Team Providers Care Power Builder Developer Name Role Phone Nash Farley MD Primary Care Provider [phone] Allergies Active Allergy Reactions Criticality Noted Date Comments Aspirin Other (See comments) Low 04/26/2018 Abdominal pain Acetaminophen Other (See comments) Low 04/26/2018 Fatty liver Medications ascorbic acid (ascorbic acid with steven hips) 500 mg tablet,chewab le Take 500 mg by mouth physician specialist before breakfast. Active allopurinol (ZYLOPRIM) 300 mg tablet Take 300 mg by mouth physician specialist before breakfast. Active irbesartan (AVAPRO) 150 mg tablet Take 150 mg by mouth physician specialist before breakfast. Active cholecalcifer ol (VITAMIN D-3) 1,000 unit tablet Take 1 tablet (1,000 Units total) by mouth physician specialist before breakfast Active oxyCODONE (ROXICODONE) 5 mg immediate release tabletIndicat ions:Pain Take 1 tablet (5 mg total) by mouth every 4 (four) hours as needed for pain. 30 tablet Active Additional Information Patient not taking.Reported on 06/03/2023 docusate sodium (COLACE) 100 mg capsuleIndica tions:constip ation Take 1 capsule (100 mg total) by mouth 2 (two) times a day as needed for constipation. Active Additional Information Patient not taking.Reported on 06/03/2023 oxybutynin (DITROPAN) 5 mg tablet Take 1 tablet (5 mg total) by mouth 3 (three) times a day as needed (Bladder spasms). Active Additional Information Patient not taking.Reported on 06/03/2023 amLODIPine (NORVASC) 2.5 mg tablet Take 1 tablet (2.5 mg total) by mouth daily Active blood glucose diagnostic strip Contour Next Test Strips USE 1 STRIP TO CHECK GLUCOSE 4 TIMES DAILY DIRECTED Active cyanocobalami n, vitamin B-12, 1,000 mcg tablet extended release 11/15/2013Vitamin b-12, po solid sr 1000 mcg Tablet, extended releasePOdailyCurrent Medication Active cyanocobalami n (Vitamin B-12) 1,000 mcg tablet Take by mouth daily Active cyanocobalami n (Vitamin B-12) 100 mcg tablet Active diclofenac sodium (VOLTAREN) 1 % gel APPLY 4 GRAMS OF GEL TOPICALLY FOUR TIMES DAILY TO SINGLE KNEE, ANKLE, FOOT; FOR FOOT INCLUDES SOLE/TOES/TOP OF FOOT. Active famotidine (PEPCID) 20 mg tablet Take 1 tablet (20 mg total) by mouth 2 (two) times a day Active fluoride, sodium, (PreviDent 5000 Booster Plus) 1.1 % paste PLACE A PEA SIZE AMOUNT TO TOOTHBRUSH AND BRUSH TWICE DAILY. SPIT OUT EXCESS AND DO NOT EAT OR DRINK FOR 30 MINUTES AFTERWARDS. Active SF 5000 Plus 1.1 % cream USE TO BRUSH TEETH TWICE DAILY Active folic acid (FOLVITE) 1 mg tablet folic acid 1 mg tablet TAKE 5 TABLETS BY MOUTH ONCE DAILY IN THE MORNING Active hydroCHLOROth iazide (HYDRODIURIL) 12.5 mg tablet Take 1 tablet (12.5 mg total) by mouth daily Active leflunomide (ARAVA) 20 mg tablet Take 1 tablet (20 mg total) by mouth daily Active metFORMIN (GLUCOPHAGE) 500 mg tablet Take 1 tablet (500 mg total) by mouth 2 (two) times a day Active potassium citrate ER (UROCIT-K) 10 mEq (1,080 mg) CR tablet Take 2 tablets (20 mEq total) by mouth 2 (two) times a day Active rosuvastatin (CRESTOR) 20 mg tablet Take 1 tablet (20 mg total) by mouth daily 018 Active semaglutide 0.25 mg or 0.5 mg (2 mg/3 mL) pen injector injection Inject 0.5 mg under the skin once a week 023 Active testosterone 30 mg/actuation (1.5 mL) solution in metered pump w/shemar USE 1 STRIP TO CHECK GLUCOSE 4 TIMES DAILY DIRECTED 020 Active valsartan (Diovan) 80 mg tablet 11/15/2013Diovan, po solid 80 mg TabletPOdailyCurrent Medication 014 Active Jardiance 10 mg tablet 024 Active omeprazole (PriLOSEC) 20 mg capsule Take 1 capsule (20 mg total) by mouth daily 024 Active carBAMazepine (TegretoL) 200 mg tablet Take 1 tablet (200 mg total) by mouth 2 (two) times a day 60 tablet 024 Active Additional Information Patient not taking.Reported on 12/20/2023 lamoTRIgine (LaMICtal) 100 mg tablet Take 1 tablet (100 mg total) by mouth daily 30 tablet 11 024 2024 Active Active Problems Problem Noted Date Diagnosed Date Chronic low back pain 12/04/2021 Osteoarthritis of multiple joints 12/04/2021 Polyarthralgia 12/04/2021 Rheumatoid arthritis involving multiple sites Essential (primary) hypertension 07/04/2018 Hyperlipidemia 07/04/2018 Calculus of kidney 07/04/2018 Obesity with body mass index 30 or greater 07/26 Thrombocytopenia 07/26/2014 Hypersplenism 07/26/2014 Gout, unspecified 07/26/2014 Abnormal liver function tests 07/26/2014 Nonalcoholic steatohepatitis (MACIEL) 07/26/2014 Hepatic steatosis 05/10/2013 Trigeminal neuralgia 04/21/2010 Immunizations Immunization Administration Dates Next Due Influenza, Quadrivalent, Екатерина l Culture-based MDCK, Preservative Free, Antibiotic Free, Intramuscular 07/06/2016 Influenza, Quadrivalent, Spl it, Preservative Free, Intramuscular 06/09/2021,06/24/2020 Influenza, Trivalent, Cell C ulture-based MDCK, Preservative Free, Antibiotic Free, Intramuscular 07/06/2016 Influenza, Trivalent, IM (MDV) 07/11/2008 Influenza, Unspecified 07/06/2016,11/15/2013 Tdap 04/06/2021 ZOSTER Recombinant 07/10/2021,05/10/2021 Surgical History Surgery Date Site/Laterality Comments MS TONSILLECTOMY PRIMARY/SECONDARY <AGE 12 Tonsillectomy - (Added by TW Conv) MS LIG/TRNSXJ FLP TUBE ABDL/ VAG APPR UNI/BI Tubal Ligation - (Added by TW Conv) TONSILLECTOMY SECTION LAPAROSCOPY EXTRACORPOREAL SHOCK WAVE LITHOTRIPSY THYROIDECTOMY SINUS SURGERY NEPHROURETERAL STENT PLACEME NT NEW ACCESS RIGHT 04/26/2018 Right URETERAL STENT PLACEMENT VIA EXISTING TRACT RIGHT 04/27/2018 Right Medical History Medical History Date Comments PONV (postoperative nausea and vomiting) Thyroid nodule Social History Tobacco Use Types Packs/Day Years Used Date Smoking Tobacco: Never Alcohol Use Standard Drinks/Week Comments No 0 (1 standard drink = 0.6 oz pur e alcohol) AUDIT-C Answer Date Recorded Q1: How often do you have a drink containing alcohol? Never 04/25/2024 Q2: How many drinks containi ng alcohol do you have on a typical day when you are drinking? Patient does not drink Q3: How often do you have si x or more drinks on one occasion? 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 Gender Identity Female 02/13/2022 11:36 AM CDT Sexual Orientation Not on file Obstetrics History Last Filed Vital Signs Vital Sign Reading Time Taken Comments Blood Pressure 145/70 06/12/2024 11:22 AM CDT Pulse 68 06/12/2024 11:22 AM CDT Temperature 36.7 C (98 F) 06/12/2024 11:22 AM CDT Respiratory Rate 18 06/12/2024 11:22 AM CDT Oxygen Saturation 94% 06/12/2024 11:22 AM CDT Inhaled Oxygen Concentration - - Weight 74 kg (163 lb 3.2 oz) 06/12/2024 11:22 AM CDT Height 154.9 cm (5' 0.98 ) 06/12/2024 11:22 AM C DT Body Mass Index 30.85 06/12/2024 11:22 AM CDT Plan of Treatment Health Maintenance Due Date Last Done Comments Breast Cancer Screening-Mammogram 1961 Cervical Cancer Screening 1961 Colon Cancer Screening-Colonoscopy 1961 Depression Screening 1961 Hepatitis C Screening 1961 Hepatitis B Screening 12/06/1979 Regular Well Visit/Exam 18-64 12/06/1979 Pneumococcal vaccine <65 (1 of 2 - PCV) 1980 Covid-19 Vaccine (2 - 2023-2 5 season) 2024 06/24/2021 Influenza Vaccine (#1) 2024 , 06/24/2020, 07/06/2016, Additional history exists DTaP/Tdap/Td Vaccine (2 - Td or Tdap) 04/06/2031 04/06/2021 Zoster Vaccine Completed 07/10/2021, 05/10/2021 Medical Devices Implanted Type Area Rn Integrated Device Identifier Shelf Expiration Date Model / Serial / Lot [employer] [id number] Amplatz 8.5fr 26cm 6 Sideport Introducer Catheter String - [id number] Implanted:Qty: 1 on 04/27/2018 at [facility] [employer] 03/01/2021 [id number] / / [id number] [place] [address] [place] For more information, please contact: [phone] * Full Code (Latest Code Status on File) Date Activated Date Inactivated Comments 04/26/2018 6:23 PM 04/28/2018 5:11 PM * Full Code Date Activated Date Inactivated Comments 04/26/2018 6:22 PM 04/26/2018 6:23 PM Care Teams Power Builder Developer Relationship Specialty Start Date End Date Nash Farley MD PCP - General Family Practice 09/15/23
--- OUTSIDE RECORDS SUMMARY | 2024-12-05 02:24 | XMS_ITS | Clinical Summary ---
Author Organization [facility] Address [address] [place] [address] Care Team Providers Care On Air Host Name Role Phone Brendon Moody MD Unavailable Nash Farley MD Primary Care Provider [phone] [facility],non-owned Affiliates and Associated Physician Practices is amultiple site organization consisting of ambulatory clinics and hospital sitesin [place], [place], [place] and [place]. This disclosure is being madepursuant to the Care Everywhere program and may not contain all information available regarding this patient. Last updated 18.[facility] Allergies Active Allergy Reactions Criticality Noted Date Comments Acetaminophen Other,Hepatic Injury High 04/26/2018 Fatty Liver Aspirin Nausea and/or Vomiti ng,GI Discomfort Medium 04/26/2018 Medications * Be aware that medications may not be up to date on this document. Alwaysverify current medications with the patient. Cyanocobalamin (B-12) 1000 MCG TABS Take by mouth once daily Active hydroCHLOROthia zide (HYDRODIURIL) 12.5 MG Take 1 (one) tablet by mouth once daily Active amLODIPine (NORVASC) 2.5 MG tablet Take 1 (one) tablet by mouth once daily 2 Active PREVIDENT [address] 1[address]1 % PLACE A PEA SIZE AMOUNT TO TOOTHBRUSH AND BRUSH TWICE DAILY. SPIT OUT EXCESS AND DO NOT EAT OR DRINK FOR 30 MINUTES AFTERWARDS. 2 Active MAGNESIUM PO Take 400 mg by mouth 2 times daily Active rosuvastatin (Crestor) 20 MG tablet Take 1 (one) tablet by mouth once daily 2 Active potassium citrate (Urocit K 10) 10 MEQ (1080 MG) tablet Take 2 (two) tablets by mouth 2 times daily 3 Active lamoTRIgine (LaMICtal) 25 MG tablet Take 1 (one) tablet by mouth once daily Take 1 tablet (25 mg total) by mouth daily Take 1 tablet (25 mg total) by mouth daily for 14 days, Then 2 tablets (50 mg total) daily for 14 days,Then 2 tablets (50 mg total) 2 times a day for 14 days, Then 4 tablets (100 mg total) 2 times a day. 06/03/2023 06/02/2024 [facility] 06/03/2023 30 tablet 11 3 Active Cholecalciferol (Vitamin D-[address]) 25 MCG (1000 UT) Take 1 (one) tablet by mouth once daily Active leflunomide (Arava) 10 MG tabletIndicatio ns:Rheumatoid Arthritis Take 0.5 (one-half) tablet by mouth once daily Reasons: Rheumatoid Arthritis 45 tablet 3 5 08/31/19 26 Active Active Problems Problem Noted Date Diagnosed Date Type 2 diabetes mellitus wit hout complication, with long-term current use of insulin 05/10/2023 Chronic low back pain 12/04/2021 Polyarthralgia 12/04/2021 Osteoarthritis of multiple joints 12/04/2021 Rheumatoid arthritis involving multiple sites [facility] current use of immunosuppressive drug 09/09/2021 Thrombocytopenia 09/09/2021 Therapeutic drug monitoring 09/09/2021 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 Encounters Date Type Department Care Team Description 11/03/2024 Orders Only [facility] - Rheumatology [address] [facility] [place] [phone] Brendon Moody MD Rheumatoid arthritis involving multiple sites, unspecified whether rheumatoid factor present; [facility] current use of immunosuppressive drug; Therapeutic drug monitoring 10/20/2024 Orders Only [facility] - Rheumatology [address] [place] [phone] Brendon Moody MD Rheumatoid arthritis involving multiple sites, unspecified whether rheumatoid factor present; 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 (AF LURIA, FLUZONE TRIVALENT; 6MO+) (IIV3) 07/11/2008 Covid WHObyYOU primary monoval ent 12+ yr 0.3mL Purple cap 06/24/2021 INFLUENZA VACCINE, CELL CULT URE, QUADR. (FLUCELVAX QUADRIVALENT; 6MO+) (CCIIV4) 07/06/2016 INFLUENZA VACCINE, QUADR. (F LUZONE; FLULAVAL; FLUARIX; AFLURIA QUADRIVALENT; 6MO+), 0.5 ML (IIV4) 06/09/2021,06/24/2020 TDAP (7yrs+) 04/06/2021 Zoster Hzv Vacc Recombinant Inj Im 07/10/2021, Social History Tobacco Use Types Packs/Day Years Used Date Smoking Tobacco: Never Smokeless Tobacco: Never Tobacco Cessation:Counseling Given: Not Answered Alcohol Use Standard Drinks/Week Comments Never 0 (1 standard drink = 0.6 oz pur e alcohol) PHQ-2 Answer Date Recorded Patient Health Questionnaire-2 Score 0 08/31/2024 Comments No Sex and Gender Information Value Date Recorded Sex Assigned at Not on file Legal Sex Female 10:33 AM CDT Gender Identity Not on file Sexual Orientation Not on file Last Filed Vital Signs Vital Sign Reading Time Taken Comments Blood Pressure 172/86 08/31/2024 3:05 PM BORDER MACHINE OPERATOR Pulse 69 08/31/2024 3:05 PM BORDER MACHINE OPERATOR Temperature 36.8 C (98.2 F) 08/31/2024 3:05 PM BORDER MACHINE OPERATOR Respiratory Rate 16 09/09/2021 1:24 PM BORDER MACHINE OPERATOR Oxygen Saturation 91% 08/31/2024 3:05 PM BORDER MACHINE OPERATOR Inhaled Oxygen Concentration - - Weight 72.6 kg (160 lb) 08/31/2024 3:05 PM BORDER MACHINE OPERATOR Height 154.9 cm (5' 1 ) 08/31/2024 3:05 PM BORDER MACHINE OPERATOR Body Mass Index 30.23 08/31/2024 3:05 PM BORDER MACHINE OPERATOR Plan of Treatment Upcoming Encounters Date Type Department Care Team (Late st Contact Info) Description 02/19/2025 3:00 PM CDT Office Visit [facility] - Rheumatology [address] [facility] [facility] [place] [address] Brendon Moody MD [address] [place] [phone] Health Maintenance Due Date Last Done Comments COLOGUARD (AGES 45-75) - COLON CA SCREENING 1961 COLON MONITORING 1961 COLONOSCOPY - COLON CA SCREENING 1961 CT COLONOGRAPHY - COLON CA SCREENING 1961 Colorectal Cancer Screening 1961 FIT - COLON CA SCREENING 1961 FLEX SIG - COLON CA SCREENING 1961 MAMMOGRAM 1961 PAP SMEAR 1961 HIV SCREENING 1976 HEPATITIS C SCREENING 12/01/1979 PNEUMOCOCCAL VACCINE 50+ (1 of 2 - PCV) 1980 COVID-19 VACCINE (2 - Pfizer risk series) 07/15/2021 06/24/2021 Respiratory Syncytial Virus (RSV) Vaccine Pt: or over 60 yrs (1 - Risk 60-74 years 1-dose series) 2021 DIABETES-FOOT EXAM WITH MONOFILAMENT 05/10/2023 DIABETES-HGB A1C 11/08/2023 05/10/2023 DIABETES - URINE PROTEIN SCREENING 08/23/2024 05/13/2023 INFLUENZA VACCINE (Season Ended) 2025 06/09/2021, 06/24/2020, 07/06/2016, Additional history exists DIABETES RETINOPATHY SCREENING 06/23/2025 06/23/2023, 06/23/2023 DIABETES-SERUM CREATININE 08/22/20252023, 05/01/2024, 12/04/2023, Additional history exists DTAP/TDAP/TD VACCINES (2 - Td or Tdap) 04/06/2031 04/06/2021 ZOSTER VACCINE Completed 07/10/2021, 05/10/2021 DEPRESSION SCREENING Completed 08/31/2024, 03/27/2024, 03/05/2022 HEPATITIS B VACCINE Aged Out No longe r eligible based on patient's age to complete this topic HIB VACCINE Aged Out No longer eligi ble based on patient's age to complete this topic HPV VACCINE Aged Out No longer eligi ble based on patient's age to complete this topic MENINGOCOCCAL (Group B) VACCINE SHARED DECISION-MAKING Aged Out No longer eligible based on patient's age to complete this topic MENINGOCOCCAL GROUPS A/C/Y/W VACCINE Aged Out No longer eligible based on patient's age to complete this topic Procedures Procedure Name Priority Date/Time Associated Diagnosis Comments COMPREHENSIVE METABOLIC PANEL 08/22/2024 9:44 AM BORDER MACHINE OPERATOR MICROALB/CREAT RATIO URINE RANDOM PANEL Routine 05/13/2023 11:29 AM CDT Screening for diabetes mellitus (DM) HEMOGLOBIN A1C - POINT OF CARE (AMB) [facility] Routine 05/10/2023 1:34 PM CDT Screening for diabetes mellitus (DM) from Last 3 Months or Most Recently Relevant to Health Maintenance Results * (ABNORMAL) COMPREHENSIVE METABOLIC PANEL (08/22/2024 9:44 AM BORDER MACHINE OPERATOR) Glucose 130(H) 65 - 99 mg/dL [facility] Comment: Fasting reference interval For someone without known diabetes, a glucose value >125 mg/dL indicates that they may have diabetes and this should be confirmed with a follow-up test. BUN 13 7 - 25 mg/dL [facility] Creatinine 0.54 0.50 - 1.05 mg/dL [facility] eGFR by Cystatin C 104 > OR = 60 mL/min/1. 73m2 [facility] BUN/Creatinine Ratio SEE NOTE: (calc) [facility] Comment: Not Reported: BUN and Creatinine are within reference range. Sodium 143 135 - 146 mmol/L [facility] Potassium 3.5 3.5 - 5.3 mmol/L [facility] Chloride 104 98 - 110 mmol/L [facility] CO2 30 20 - 32 mmol/L [facility] Calcium 9.7 8.6 - 10.4 mg/dL [facility] Protein Total 7.5 6.1 - 8.1 g/dL [facility] Albumin 4.6 3.6 - 5.1 g/dL [facility] Globulin Total 2.9 1.9 - 3.7 g/dL (calc) [facility] Albumin/Globulin Ratio 1.6 1.0 - 2.5 (calc) [facility] Bilirubin Total 1.2 0.2 - 1.2 mg/dL [facility] Alkaline Phosphatase 84 37 - 153 U/L [facility] AST 23 10 - 35 U/L [facility] ALT 26 6 - 29 U/L [facility] Comment: Test Performed at: [facility] [address] BERTO RODRIGUEZ MD 08/22/2024 9:44 AM BORDER MACHINE OPERATOR 08/22/2024 9:46 AM BORDER MACHINE OPERATOR Brendon Moody MD LAB - CHEMISTRY ORDERABLES Final Result [address] [address] * (ABNORMAL) MICROALB/CREAT RATIO URINE RANDOM PANEL (05/13/2023 11:29 AM CDT) Creatinine Urine 136 20 - 275 mg/dL [facility] Microalbumin Urine 9.7 mg/dL [facility] Comment: Reference Range Not established Microalbumin/Creat inine Ratio 71(H) <30 mcg/mg creat [facility] Comment: The ADA defines abnormalities in albumin excretion as follows: Albuminuria Category Result (mcg/mg creatinine) Normal to Mildly increased <30 Moderately increased 30-299 Severely increased > OR = 300 The ADA recommends that at least two of three specimens collected within a 3-6 month period be abnormal before considering a patient to be within a diagnostic category. Test Performed at: [facility] [employer] [address] [place] [address] BERTO RODRIGUEZ MD Urine URINE SPECIMEN OBTAINED BY CLEAN CATCH PROCEDURE / Unknown 05/13/2023 11:29 AM CDT 05/13/2023 11:33 AM CDT us Shital Domingo DO LAB - URINE CHEMISTRY ORDERABLES Final Result [facility] [id number] [place] [address] * HEMOGLOBIN A1C - POINT OF CARE (AMB) [facility] (05/10/2023 1:34 PM CDT) Hemoglobin A1c POCT 5.1 % [facility] [address] BLOOD SPECIMEN / Unknown 05/10/2023 1:34 PM CDT us Shital Domingo DO LAB - POINT OF CARE ORDERABLES F inal Result Performing Organization Address City/[facility]/ZIP Co de Phone Number [facility], [facility] [address] [place] [address], [facility] [phone] from Last 3 Months or Most Recently Relevant to Health Maintenance Insurance SHIVANI ANTHEM ANTHEM ANTHEM ANTHEM ANTHEM ANTHEM ANTHEM ANTHEM ANTHEM ANTHEM ANTHEM ANTHEM ANTHEM ANTHEM ANTHEM ANTHEM ANTHEM ANTHEM ANTHEM ANTHEM ANTHEM ANTHEM ANTHEM ANTHEM MEDICAID - OUT OF STATE ANTHEM MEDICAID - OUT OF STATE ANTHEM MEDICAID - OUT OF STATE ANTHEM MEDICAID - OUT OF STATE ANTHEM MEDICAID - OUT OF STATE ANTHEM MEDICAID - OUT OF STATE ANTHEM MEDICAID - OUT OF STATE ANTHEM MEDICAID - OUT OF STATE ANTHEM MEDICAID - OUT OF STATE ANTHEM ANTHEM ANTHEM ANTHEM Care Teams On Air Host Relationship Specialty Start Date End Date Nash Farley MD [address] [place] [phone] PCP - General Family Medicine 05/10/23 Brendon Moody MD [facility] [place] [address] Tutorial Laboratory Supervisor Rheumatology 03/05/22
--- OUTSIDE RECORDS SUMMARY | 2024-12-05 02:24 | XMS_ITS | Clinical Summary ---
Author Organization [facility] Address [address] [address] Phone Care Team Providers Care Reed Or Wind Instrument Repairer Name Role Phone Louis Bruno DO Primary Care Provider [phone] Allergies Active Allergy Reactions Criticality Noted Date Comments Acetaminophen Low 04/26/2018 Other reaction(s): Other (See comments) Fatty liver Aspirin Nausea Only Low 04/26/2018 Other reaction(s): Other Other reaction(s): Other (See comments) Abdominal pain Medications allopurinol (ZYLOPRIM) 300 MG tablet 1 daily 0 07/04/2018 Active rosuvastatin (CRESTOR) 20 MG tablet 1 daily 0 07/04/2018 Active Cholecalciferol (VITAMIN D3) 1000 units capsule 3 daily 0 07/04/2018 Active folic acid (FOLVITE) 1 MG tablet Take 1,000 mcg by mouth 1 (one) time each day 6 05/04/2019 Active metFORMIN (GLUCOPHAGE) 500 MG tablet TAKE 1 TABLET BY MOUTH TWICE DAILY WITH MORNING AND EVENING MEAL 0 05/13/2019 Active cyanocobalamin (VITAMIN B-12) 1000 MCG tablet Take 1,000 mcg by mouth 1 (one) time each day Active CONTOUR NEXT TEST test strip USE 1 STRIP TO CHECK GLUCOSE 4 TIMES DAILY DIRECTED 09/13/2019 Active Microlet Lancets misc USE 1 TO CHECK GLUCOSE 4 TIMES DAILY DIRECTED 09/13/2019 Active leflunomide (ARAVA) 20 MG tablet TAKE 1 TABLET BY MOUTH ONCE DAILY IN THE MORNING 10/30/2020 Active amLODIPine (NORVASC) 2.5 MG tablet Take 1 tablet (2.5 mg total) by mouth 1 (one) time each day 30 tablet 11 10/27/2021 Active hydroCHLOROthia zide (HYDRODIURIL) 12.5 MG tablet Take 1 tablet by mouth once daily 90 tablet 07/30/2022 Active Active Problems Problem Noted Date Diagnosed Date Calculus of kidney 07/04/2018 Essential (primary) hypertension 07/04/2018 Hyperlipidemia 07/04/2018 Nonalcoholic steatohepatitis (MACIEL) 07/26/2014 Thrombocytopenia 07/26/2014 Gout 07/26/2014 Trigeminal neuralgia 04/21/2010 Immunizations Immunization Administration Dates Next Due Fluzone High-Dose 06/24/2020 Influenza TIV (IM) 07/11/2008 Influenza, Injectable, Mdck, Preservative Free, Quadrivalt 07/06/2016 Influenza, Injectable, Quadrivalent, Preservativ e Free 06/09/2021,06/24/2020 Influenza, Unspecified 07/06/2016 Tdap 04/06/2021 Zoster Recombinant 07/10/2021,05/10/2021 Family History Medical History Relation Comments Kidney disease Neg Hx Social History Tobacco Use Types Packs/Day Years Used Date Smoking Tobacco: Never Smokeless Tobacco: Never Alcohol Use Standard Drinks/Week Comments No 0 (1 standard drink = 0.6 oz pur e alcohol) Comments Unknown Sex and Gender Information Value Date Recorded Sex Assigned at Not on file Legal Sex Female 9:37 AM [facility] Gender Identity Not on file Sexual Orientation Not on file Last Filed Vital Signs Vital Sign Reading Time Taken Comments Blood Pressure 118/72 05/27/2022 10:47 AM CDT Pulse 72 05/27/2022 10:47 AM CDT Temperature 36.1 C (97 F) 05/27/2022 10:47 AM CDT Respiratory Rate - - Oxygen Saturation - - Inhaled Oxygen Concentration - - Weight 71.7 kg (158 lb) 05/27/2022 10:47 AM CDT Height 154.9 cm (5' 1 ) 05/27/2022 10:47 AM CDT Body Mass Index 29.85 05/27/2022 10:47 AM CDT Plan of Treatment Health Maintenance Due Date Last Done Comments COVID-19 Vaccine (2023-2 5 season) 2024 06/24/2021 Influenza Vaccine (Season Ended) 2025 06/09/2021, 06/24/2020, 07/06/2016, Additional history exists Insurance [facility] Care Teams Reed Or Wind Instrument Repairer Relationship Specialty Start Date End Date Louis Bruno DO [address] [place] [address] PCP - General Internal Medicine 05/27/22
--- OUTSIDE RECORDS SUMMARY | 2024-12-05 02:24 | XMS_ITS | Clinical Summary ---
Author Organization [facility] Sahra thompson Nadiawilmerami Address [address] [place] [place] [address] Care Team Providers Care Garden Consultant Name Role Phone Nash Farley MD Primary Care Provider [phone] Allergies Active Allergy Reactions Criticality Noted Date Comments Acetaminophen Hepatic Dysfunction Medium 04/26/2018 Aspirin Other (See Comments),Nausea and Vomiting Low 04/26/2018 Abdominal pain Other reaction(s): Other Other reaction(s): Other (See comments) Abdominal pain Medications blood sugar diagnostic (Contour Next Test Strips) Strip Contour Next Test Strips USE 1 STRIP TO CHECK GLUCOSE 4 TIMES DAILY DIRECTED Active cholecalcifer ol, vitamin D3, 1,000 unit Take 1,000 Units by mouth. Active cyanocobalami n 1,000 mcg Tablet Take 1,000 mcg by mouth. Active folic acid (FOLVITE) 1 mg tablet folic acid 1 mg tablet TAKE 5 TABLETS BY MOUTH ONCE DAILY IN THE MORNING 05/04/20 19 Active hydroCHLOROth iazide (HYDRODIURIL) 12.5 mg tablet hydrochlorothiazide 12.5 mg tablet TAKE 1 TABLET BY MOUTH ONCE DAILY 11/29/19 20 Active potassium citrate (UROCIT-K) 10 mEq (1,080 mg) Extended Release tablet potassium citrate ER 10 mEq (1,080 mg) tablet,extended release TAKE 2 TABLETS BY MOUTH TWICE DAILY 06/25/20 20 Active rosuvastatin (CRESTOR) 20 mg tablet rosuvastatin 20 mg tablet TAKE 1 TABLET BY MOUTH ONCE DAILY 07/04/20 18 Active leflunomide (ARAVA) 20 mg Tablet Take 10 mg by mouth daily. 10/31/19 21 Active amLODIPine (NORVASC) 2.5 mg tablet Take 2.5 mg by mouth daily. 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 Encounters Date Type Department Care Team Description 11/21/2024 External Device Data [facility] ABSTRACTION Provider, Abstract 11/08/2024 External Device Data [facility] ABSTRACTION Provider, Abstract 10/31/2024 External Device Data [facility] AB[facility]CTION Provider, Abstract 10/31/2024 External Device Data [facility] AB[facility]CTION Provider, Abstract 10/30/2024 External Device Data [facility] AB[facility]CTION Provider, Abstract 10/28/2024 External Device Data [facility] AB[facility]CTION Provider, Abstract 10/27/2024 External Device Data [facility] AB[facility]CTION Provider, Abstract 10/24/2024 External Device Data [facility] AB[facility]CTION Provider, Abstract 10/10/2024 External Device Data [facility] ABSTRACTION Provider, Abstract 09/13/2024 External Device Data [facility] ABSTRACTION Provider, Abstract 09/13/2024 External Device Data [facility] ABSTRACTION Provider, Abstract 09/06/2024 External Device Data [facility] ABSTRACTION Provider, Abstract from Last 3 Months Family History Medical History Relation Name Comments Healthy Brother 1 Healthy Brother 2 Healthy Brother 3 Healthy Daughter 1 Healthy Daughter 2 Healthy Daughter 3 Healthy Sister 1 Healthy Sister 2 Healthy Sister 3 Relation Name Status Comments Brother 1 Alive Brother 2 Alive Brother 3 Alive Daughter 1 Alive Daughter 2 Alive Daughter 3 Alive Father Mother Sister 1 Alive Sister 2 Alive Sister 3 Alive Social History Tobacco Use Types Packs/Day Years Used Date Smoking Tobacco: Never Tobacco Cessation:Counseling Given: Not Answered Alcohol Use Standard Drinks/Week Comments Never 0 (1 standard drink = 0.6 oz pur e alcohol) Comments No Sex and Gender Information Value Date Recorded Sex Assigned at Not on file Legal Sex Female 2:12 PM NUCLEAR POWERPLANT MECHANIC HELPER Gender Identity Not on file Sexual Orientation Not on file Last Filed Vital Signs Vital Sign Reading Time Taken Comments Blood Pressure 143/73 06/30/2024 9:00 AM NUCLEAR POWERPLANT MECHANIC HELPER Pulse 67 06/30/2024 8:55 AM NUCLEAR POWERPLANT MECHANIC HELPER Temperature 36.5 C (97.7 F) 06/30/2024 8:55 AM NUCLEAR POWERPLANT MECHANIC HELPER Respiratory Rate 17 06/30/2024 8:55 AM NUCLEAR POWERPLANT MECHANIC HELPER Oxygen Saturation 94% 06/30/2024 8:55 AM NUCLEAR POWERPLANT MECHANIC HELPER Inhaled Oxygen Concentration - - Weight 72 kg (158 lb 12.8 oz) 06/30/2024 8:55 AM NUCLEAR POWERPLANT MECHANIC HELPER Height 154.9 cm (5' 1 ) 03/18/2022 10:16 AM CDT Body Mass Index 30 03/18/2022 10:16 AM CDT Plan of Treatment Upcoming Encounters Date Type Department Care Team (Late st Contact Info) Description 12/28/2024 10:00 AM CDT Office Visit [facility] Oncology and Hematology - [place] [address] [place] [address] Bryan Caldwell MD [address] [facility] [address] [place] [address] Health Maintenance Due Date Last Done Comments DIABETES ANNUAL FOOT EXAM 12/06/1979 DIABETES MICROALBUMIN ANNUAL SCREEN 12/06/1979 LDL CHOLESTEROL ANNUAL 12/06/1979 HPV/Cotest (21-29) 1982 PAP SMEAR 1982 CERVICAL CANCER SCREENING 12/06/1991 HPV/Cotest (30-65) 12/06/1991 PAP SMEAR 12/06/1991 BREAST CANCER SCREENING 2001 COLORECTAL SCREENING 2006 Colorectal Cancer Screening 2006 FIT-DNA Q 3 years 2006 FIT/FOBT Q 1 year 2006 Flex Sig/CT Colonography Q 5 years 2006 DIABETES HBA1C Q 6 MONTHS 11/08/2023 05/10/2023 INFLUENZA VACCINE (#1) 2024 , 06/24/2020, 07/06/2016, Additional history exists COVID-19 Vaccine (2 - 2023-2 5 season) 2024 06/24/2021 DIABETES ANNUAL RETINAL EXAM 06/23/2024 06/23/2023 DTAP/TDAP/TD VACCINES (2 - T d or Tdap) 04/06/2031 04/06/2021 RSV VACCINE (60+ or ) (1 - 1-dose 75+ series) 2036 ZOSTER VACCINE Completed 07/10/2021, 05/10/2021 Insurance [employer] BLUE PREFERRED Care Teams Garden Consultant Relationship Specialty Start Date End Date Nash Farley MD [address] [place] [phone] PCP - General Family Practice 06/30/24
--- OUTSIDE RECORDS SUMMARY | 2024-12-05 02:24 | XMS_ITS | Referral Summary ---
Author Organization [facility] Address [address] [place] [address] Care Team Providers Care Bread Jockey Name Role Phone Nash Farley MD Primary Care Provider [phone] Allergies Active Allergy Reactions Criticality Noted Date Comments Aspirin Other (See comments) Low 04/26/2018 Abdominal pain Acetaminophen Other (See comments) Low 04/26/2018 Fatty liver Medications ascorbic acid (ascorbic acid with steven hips) 500 mg tablet,chewab le Take 500 mg by mouth director of early childhood before breakfast. Active allopurinol (ZYLOPRIM) 300 mg tablet Take 300 mg by mouth director of early childhood before breakfast. Active irbesartan (AVAPRO) 150 mg tablet Take 150 mg by mouth director of early childhood before breakfast. Active cholecalcifer ol (VITAMIN D-3) 1,000 unit tablet Take 1 tablet (1,000 Units total) by mouth director of early childhood before breakfast Active oxyCODONE (ROXICODONE) 5 mg [...] Unspecified 07/06/2016,11/15/2013 Tdap 04/06/2021 ZOSTER Recombinant 07/10/2021,05/10/2021 Social History Tobacco Use Types Packs/Day Years [...] on file Legal Sex Female 4:54 AM SERVOMECHANISM DESIGNER Gender Identity Female 02/13/2022 11:36 AM CDT Sexual Orientation Not on file Last Filed [...] 06/12/2024 11:22 AM CDT Plan of Treatment Not on file Medical Devices Implanted Type Area Barrel Raiser Helper Device Identifier Shelf Expiration Date Model / Serial / Lot [employer] [id number] Amplatz 8.5fr 26cm 6 Sideport Introducer Catheter String - [id number] Implanted:Qty: 1 on 04/27/2018 at [facility] [employer] 03/01/2021 [id number] / / [id number] [place]ives For more information, please contact: [phone] * Full Code (Latest Code Status on File) Date Activated Date Inactivated Comments 04/26/2018 6:23 PM 04/28/2018 5:11 PM * Full Code Date Activated Date Inactivated Comments 04/26/2018 6:22 PM 04/26/2018 6:23 PM Care Teams Bread Jockey Relationship Specialty Start Date End Date Nash Farley MD PCP - General Family Practice 09/15/23
--- OUTSIDE RECORDS SUMMARY | 2024-12-05 02:24 | XMS_ITS | Continuity of Care Document ---
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 Phone Unavailable Unavailable Unavailable Allergies, Adverse Reactions, Alerts Substance Reaction Status Criticality aspirin Active No Information Medications Medication Instructions Dosage Effective Dates (start - stop) Status Comments amoxicillin 500 mg Cap take 1 capsule (500MG) by ORAL route every 8 hours 500 MG - Active Procedures Procedure Date DETERMINATION OF REFRACTIVE STATE OPH MEDICAL XM&EVAL COMPRE NEW PT 1+ VST Dental prophylaxis adult Periodic oral evaluation Oral hygiene instruction Comprehensve oral evaluation Comprehensve oral evaluation Dental Bitewings Radiographic, Two Image s Dental prophylaxis adult Oral hygiene instruction Limit oral eval problem focused 013 Periapical Radiographic, first Image Mar Limit oral eval problem focused 012 Resin composite, 2 surf posterior DETERMINATION OF REFRACTIVE STATE Dental bitewings two films Periodic oral evaluation Dental prophylaxis adult Oral hygiene instruction Topical fluor w/o prophy adult 10 Amalgam two surfaces Limit oral eval problem focused 010 INFLUENZA VACCINE, AGE 3YRS+ OFFICE OUTPT NEW 20 MINUTES Extraction erupted tooth or exposed root Periapical first film Comprehensve oral evaluation Dental bitewings two films Dental prophylaxis adult Topical fluor w/o prophy adult 08 Oral hygiene instruction Periapical first film Periapical first film Limit oral eval problem focused 008 Oral hygiene instruction Dental bitewings two films Dental prophylaxis adult Comprehensve oral evaluation Advance Directives Directive Yes / No Effective Date File Name No Information Encounters Encounter Description Practice Location Reason(s) For Visit Diagnoses Date Provider Providers Copied on Encounter [facility], [address], [place], [place], [id number] , tel: [phone] [facility] No Information 5 No Information [facility], [address], [place], [place], [address] , tel: [phone] [facility] blurry vision (chief complaint)bl urry vision (chief complaint) AstigmatismPr esbyopia 5 No Information [facility], [address], [place], [place], [id number] , tel: [phone] [facility] 4 Terri Murdock. [address], [place], [place], [address]. tel:[phone] Referring Provider: Collette Murray, [address], [place], [address] . tel:[phone] [facility], [address], [place], [place], [address] , tel: [phone] [facility] examination 3 No Information [facility], [address], [place], [place], [address] , tel: [phone] [facility] 3 Ga Rosales. [address], [place], [place], [address], . tel:[phone] [facility], [address], [place], [place], [address] , [place] tel: [phone] [facility] 2 Ga Rosales. [address], [place], [place], [address], [place]. tel:[phone] [facility], [address], [place], [place], [address] , [place] tel: [phone] [facility] broken glasses (chief complaint) PresbyopiaAst igmatism, unspecified 2 No Information [facility], [address], [place], [place], [address] , [place] tel: [phone] [facility] No Information 0 No Information [facility], [address], [place], [place], [address] , [place] tel: [phone] [facility] Educational (chief complaint) Inadequate material resources 0 No Information [facility], [address], [place], [place], [address] , [place] tel: [phone] [facility] No Information 0 No Information [facility], [address], [place], [place], [address] , [place] tel: [phone] Historic Immunization Location No Information 9 No Information OFFICE OUTPT NEW 20 MINUTES [facility], [address], [place], [place], [address] , [place] tel: [phone] [facility] VACCIN FOR INFLUENZADISO RDERS OF THYROID NECROUTINE MEDICAL EXAM 9 8 No Information [facility], [address], [place], [place], [address] , [place] tel: [phone] [facility] DENTAL EXAMINATION 8-200 8 No Information [facility], [address], [place], [place], [address] , [place] tel: [phone] [facility] DENTAL EXAMINATION 5-200 8 No Information [facility], [address], [place], [place], [address] , [place] tel: [phone] [facility] DENTAL EXAMINATION 8 No Information [facility], [address], [place], [place], [address] , [place] tel: [phone] [facility] DENTAL EXAMINATION 6 No Information [facility], [address], [place], [place], [address] , [place] tel: [phone] Care Guidelines 1190 1 No Information Family History Family Member Type Diagnosis Age At Onset Problem (finding) No family history of Bl indness Problem (finding) No family history of Ca taracts Immunizations Vaccine Date Status Comments flu (split) (3 yrs or older) administered Source: Source Unspecified INFLUENZA VIRUS VACCINE SPLI T VIRUS 3 YEARS + IM administered Source: New Immuniza tion Record Payers Payer name Insurance type Covered democrat ID Authoriza tion(s) No Information Social History Type Description Quantity Date Captured Comments Sex Female Smoking Status No Information Chief Complaint And Reason For Visit No Information Reason For Referral Reason For Referral No Information Plan Of Treatment Date Type Action Status Goal Influenza Vaccine. Due on No due Goal Influenza Vaccine. Due on No due History Of Present Illness Encounter Date Complaint History Of Prese nt Illness blurry vision The 54 years old female presents for evaluation of blurry vision in the right eye and left eye. It started about 1 year(s) ago. The onset was gradual. It affects near vision. The symptom is constant. Functional Status Date Functional Assessmen t No Information Instructions Date Instruction Additional Infor mation - Rx bifocals (dista nce tasks and reading/sewing) and computer vision only specs. Pt was edu about bifocal adaptation period. RTC in 1 year for CEE. Related to Presbyopia - Rx bifocals (dista nce tasks and reading/sewing) and computer vision only specs. Pt was edu about bifocal adaptation period. RTC in 1 year for CEE.Rec OTC +1.50 for computer use as pt is only able to purchase 1 pair of Rx specs at . Gave pt Rx for both pairs in case wanting to purchase at outside optical Related to Astigmatism - 1 Year Related to Presb yopia - 1 Year Related to Astig matism Astigmatism, OU - Lo w amounts of regular astigmatism. No RX needed at this time. RTC in 1 yr. Related to Astigmatism Presbyopia, OU - Rec ommend reading glasses only or +1.25 OTC readers. RTC in 1 yr or prn for vision changes. Ocular health good. Recommended examination with primary care physician. Related to Presbyopia Assessments Type Assessment Date No Information Patient Care Teams Name Effective Dates (start - stop) Status Members No Information
--- OUTSIDE RECORDS SUMMARY | 2024-12-05 02:24 | XMS_ITS | Clinical Summary ---
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 Phone Unavailable Primary Care Provider Unavailabl e Social History Tobacco Use Types Packs/Day Years Used Date Smoking Tobacco: Never Assessed Comments Unknown Sex and Gender Information Value Date Recorded Sex Assigned at Not on file Legal Sex Female 12:44 AM CDT Gender Identity Not on file Sexual Orientation Not on file Plan of Treatment Health Maintenance Due Date Last Done Comments Hepatitis C Virus (HCV) Screening 1961 TdaP Immunization 1961 Pap Smear 1982 Cervical Cancer Screening (CCS) 12/06/1991 HPV/Cotest 12/06/1991 Colonoscopy 2006 Colorectal Cancer Screening 2006 Cologuard 12/06/2011 Immunochemical Fecal Occult Blood 12/06/2011 Mammogram 12/06/2011 Pneumococcal Immunization (5 0+ years) (1 of 1 - PCV) 12/06/2011 Zoster Immunization (1 of 2) 12/06/2011 Influenza Immunization (#1) 2024 SARS-COV-2 Immunization (2023- season) 2024 Respiratory Syncytial Virus (RSV) Immunization (Adult) (1 - 1-dose 75+ series) 2036 Hepatitis B Immunization Aged Out No longer eligible based on patient's age to complete this topic Meningococcal Immunization (ACWY) Aged Out No longer eligible based on patient's age to complete this topic Pneumococcal Immunization Combined Aged Out No longer eligible based on patient's age to complete this topic Rotavirus Immunization Aged Out No lo nger eligible based on patient's age to complete this topic
--- OUTSIDE RECORDS SUMMARY | 2024-12-05 02:24 | XMS_ITS | Continuity of Care Document ---
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 Name Role Phone Hussein PT,MPT,ATC, Esteban Unavailable Unavai lable Procedures Procedure Date Therapeutic Activities Neuromuscular Re-Ed Therapeutic Exercise Manual Therapy Therapeutic Activities Neuromuscular Re-Ed Therapeutic Exercise Manual Therapy Therapeutic Activities Neuromuscular Re-Ed Therapeutic Exercise Manual Therapy Therapeutic Activities Neuromuscular Re-Ed Therapeutic Exercise Manual Therapy Therapeutic Activities Neuromuscular Re-Ed Therapeutic Exercise Manual Therapy Therapeutic Activities Neuromuscular Re-Ed Therapeutic Exercise Manual Therapy Therapeutic Activities Neuromuscular Re-Ed Therapeutic Exercise Manual Therapy Therapeutic Activities Neuromuscular Re-Ed Therapeutic Exercise Manual Therapy Therapeutic Activities Neuromuscular Re-Ed Therapeutic Exercise Manual Therapy Therapeutic Activities Neuromuscular Re-Ed Therapeutic Exercise Manual Therapy Doc neg elder mal no plan PT Evaluation Moderate Complexity Therapeutic Activities Neuromuscular Re-Ed Therapeutic Exercise Therapeutic Activities Neuromuscular Re-Ed Therapeutic Exercise Therapeutic Activities Neuromuscular Re-Ed Therapeutic Exercise Therapeutic Activities Neuromuscular Re-Ed Therapeutic Exercise Progress Note Therapeutic Activities Neuromuscular Re-Ed Therapeutic Exercise Therapeutic Activities Neuromuscular Re-Ed Therapeutic Exercise Therapeutic Activities Neuromuscular Re-Ed Therapeutic Exercise Therapeutic Activities Neuromuscular Re-Ed Therapeutic Exercise Therapeutic Activities Neuromuscular Re-Ed Therapeutic Exercise Therapeutic Activities Neuromuscular Re-Ed Therapeutic Exercise Therapeutic Activities Neuromuscular Re-Ed Therapeutic Exercise Therapeutic Activities Neuromuscular Re-Ed Therapeutic Exercise Therapeutic Activities Neuromuscular Re-Ed Therapeutic Exercise Doc neg elder mal no plan PT Evaluation Moderate Complexity Therapeutic Activities Neuromuscular Re-Ed Therapeutic Exercise Therapeutic Activities Neuromuscular Re-Ed Therapeutic Exercise Manual Therapy Hot or Cold Pack Therapeutic Activities Neuromuscular Re-Ed Therapeutic Exercise Manual Therapy Hot or Cold Pack Therapeutic Activities Neuromuscular Re-Ed Therapeutic Exercise Manual Therapy Hot or Cold Pack Therapeutic Activities Neuromuscular Re-Ed Therapeutic Exercise Manual Therapy Hot or Cold Pack Paraffin Bath Therapeutic Activities Neuromuscular Re-Ed Therapeutic Exercise Manual Therapy Hot or Cold Pack Therapeutic Activities Neuromuscular Re-Ed Therapeutic Exercise Manual Therapy Paraffin Bath Therapeutic Activities Neuromuscular Re-Ed Therapeutic Exercise Manual Therapy Paraffin Bath Therapeutic Activities Neuromuscular Re-Ed Therapeutic Exercise Manual Therapy Hot or Cold Pack Therapeutic Activities Neuromuscular Re-Ed Manual Therapy Hot or Cold Pack Therapeutic Activities Neuromuscular Re-Ed Manual Therapy Hot or Cold Pack OT Evaluation Moderate Complexity Therapeutic Activities Neuromuscular Re-Ed Therapeutic Exercise Manual Therapy Hot or Cold Pack Therapeutic Activities Neuromuscular Re-Ed Therapeutic Exercise Manual Therapy Neuromuscular Re-Ed Therapeutic Activities Hot or Cold Pack Therapeutic Exercise Manual Therapy Therapeutic Activities Manual Therapy Therapeutic Exercise Neuromuscular Re-Ed Hot or Cold Pack Therapeutic Activities Neuromuscular Re-Ed Therapeutic Exercise Therapeutic Activities Neuromuscular Re-Ed Therapeutic Exercise Hot or Cold Pack Therapeutic Activities Neuromuscular Re-Ed Therapeutic Exercise Therapeutic Activities Neuromuscular Re-Ed Therapeutic Exercise Therapeutic Activities Neuromuscular Re-Ed Therapeutic Exercise Therapeutic Activities Therapeutic Exercise Neuromuscular Re-Ed Therapeutic Activities Neuromuscular Re-Ed Therapeutic Exercise Therapeutic Activities Neuromuscular Re-Ed Therapeutic Exercise Therapeutic Activities Neuromuscular Re-Ed Therapeutic Exercise Therapeutic Activities Neuromuscular Re-Ed Therapeutic Exercise Therapeutic Activities Neuromuscular Re-Ed Therapeutic Exercise Therapeutic Activities Therapeutic Exercise Neuromuscular Re-Ed Therapeutic Activities Therapeutic Exercise Neuromuscular Re-Ed Therapeutic Exercise Therapeutic Activities Neuromuscular Re-Ed PT Re-evaluation Therapeutic Exercise Neuromuscular Re-Ed Therapeutic Activities Neuromuscular Re-Ed Therapeutic Exercise Therapeutic Activities Progress Note Therapeutic Exercise Therapeutic Activities Neuromuscular Re-Ed Therapeutic Activities Neuromuscular Re-Ed Therapeutic Exercise Therapeutic Activities Therapeutic Exercise Neuromuscular Re-Ed Therapeutic Activities Neuromuscular Re-Ed Therapeutic Exercise Therapeutic Activities Neuromuscular Re-Ed Therapeutic Exercise Manual Therapy Neuromuscular Re-Ed Therapeutic Activities Therapeutic Exercise Therapeutic Activities Neuromuscular Re-Ed Therapeutic Exercise Therapeutic Activities Neuromuscular Re-Ed Therapeutic Exercise Neuromuscular Re-Ed Therapeutic Activities Therapeutic Exercise Therapeutic Activities Neuromuscular Re-Ed Therapeutic Exercise PT Evaluation High Complexity Therapeutic Activities Neuromuscular Re-Ed Therapeutic Exercise Advance Directives Directive Yes / No Effective Date File Name No Information Encounters Encounter Description Practice Location Reason(s) For Visit Diagnoses Date Provider Providers Copied on Encounter [facility], [place], [place], [id number], tel:[phone] [place] No Information 4 [place], [place]. [facility], [place], [place], [address], tel:[phone] [employer] No Information 4 Julia Wood. . Referring Provider: Timothy Rosales, [address] [facility], [place], [address]. tel:[phone] [facility], [place], [place], [address], [place] tel:[phone] [place] No Information Nov-0 7-202 4 [place]. . Referring Provider: [facility], [place], [address]. tel:[phone] [place] [address], [address] [place], [place] [address], [place], [place], [address], tel:[phone] [place] No Information Nov-0 4-202 4 [place]. Referring Provider: Timothy Rosales, [facility], [place], [address]. tel:[phone] [place] [address], [address] [place] [address], [place], [place], [address], [place] tel:[phone] [place] No Information Oct-3 1-202 4 [place] Israel. . Referring Provider: [facility], [place], [address]. tel:[phone] [place] [address], [address] [place] [address], [place], [place], [address], [place] tel:[phone] [place] No Information Oct-2 9-202 4 [place] Israel. . Referring Provider: [facility], [place], [address]. tel:[phone] [place] [address], [place], [place], [address], [place] tel:[phone] [facility] No Information Oct-2 4-202 4 [place] Israel. . Referring Provider: [facility], [place], [address]. tel:[phone] [place] [address], [address] [place] [address], [place], [place], [address], [place] tel:[phone] [facility] No Information Oct-2 2-202 4 [place] Israel. . Referring Provider: [facility], [place], [address]. tel:[phone] [facility], [address], [place], [place], [address], [place] tel:[phone] [facility] No Information Oct-1 5-202 4 [place] Israel. . Referring Provider: Timothy Rosales, [address] [facility], [place], [address]. tel:[phone] [place] [address], [address], [place], [place], [address], [place] tel:[phone] [facility] No Information Oct-1 4-202 4 [place] Israel. . Referring Provider: Timothy Rosales, [address] [facility], [place], [address]. tel:[phone] [place] [address], [address] [place], [place] [address], [place], [place], [address], [place] tel:[phone] [facility] No Information Oct-1 0-202 4 [place]. Referring Provider: Timothy Rosales, [address] [facility], [place], [address]. tel:[phone] [place] [address], [address], [place], [place], [address], [place] tel:[phone] [facility] No Information Oct-0 8-202 4 [place]. Referring Provider: Timothy Rosales, [address] [facility], [place], [address]. tel:[phone] [facility], [address], [place], [place], [address], [place] tel:[phone] [facility] No Information Sep-0 7-202 3 Aspen Layne. . Referring Provider: Fely Sandoval, [address] [place], [address]. tel:[phone] [facility], [address], [place], [place], [address], [place] tel:[phone] [facility] No Information Sep-0 5-202 3 Klahn Roverto. . Referring Provider: Fely Sandoval, [address] [facility] [place], [address]. tel:[phone] [facility] [facility], [place], [place], [address], [place] tel:[phone] [place] No Information 3 Aspen Layne. . Referring Provider: Fely Sandoval, [address] [facility] [place], [address]. tel:[phone] [facility], [address], [place], [place], [address], [place] tel:[phone] [place] No Information 3 Kellen Roverto. . Referring Provider: Fely Sandoval, [address] [place], [address]. tel:[phone] [place], [place] [address] [facility], [place], [place], [address], [place] tel:[phone] [facility] No Information 3 Luis An Roverto. . Referring Provider: Fely Sandoval, [address] [place], [address]. tel:[phone] [facility], [address] [address], [place], [place], [address], [place] tel:[phone] [facility] No Information 3 Luis Aaman Layne. . Referring Provider: Fely Sandoval, [address] [place], [address]. tel:[phone] [facility], [place], [place], [address], [place] tel:[phone] [place] No Information 3 Kellen Roverto. . Referring Provider: Fely Sandoval, [address] [facility] [place], [address]. tel:[phone] [facility], [place], [place], [address], [place] tel:[phone] [place] No Information 3 [place]orge Israel. . Referring Provider: Fely Sandoval, [address] [place], [address]. tel:[phone] [facility], [place], [place], [address], [place] tel:[phone] [place] No Information 0 3 [place] Israel. . Referring Provider: Fely Sandoval, [address] [place], [address]. tel:[phone] [place] [address], [place], [place], [address], [place] tel:[phone] [facility] No Information 0 3 Klahn Roverto. . Referring Provider: Fely Sandoval, [address] [place], [address]. tel:[phone] [facility], [place], [place], [address], [place] tel:[phone] [place] No Information 0 3 Klahn Roverto. . Referring Provider: Fely Sandoval, [address] [place], [address]. tel:[phone] [facility], [place], [place], [address], [place] tel:[phone] [place] No Information 0 3 Klahn Roverto. . Referring Provider: Fely Sandoval, [address] [place], [address]. tel:[phone] [facility], [place], [place], [address], [place] tel:[phone] [place] No Information 3 Aspen Layne. . Referring Provider: Fely Sandoval, [address] [place], [address]. tel:[phone] [facility] [address], [place], [place], [address], [place] tel:[phone] [place] No Information 2 Harig Marleny. . Referring Provider: Brendon Moody, [address] [place] [address], [address]. tel:[phone] [facility] [facility] [address], [place], [place], [address], [place] tel:[phone] [place] No Information 2 Harig Marleny. . Referring Provider: Brendon Moody, [address] [place] [address], [address]. tel:[phone] [facility] [address], [place], [place], [address], [place] tel:[phone] [place] No Information 2 Harig Marleny. . Referring Provider: Brendon Moody, [address] [place] [address], [address]. tel:[phone] [facility] [address], [place], [place], [address], [place] tel:[phone] [place] No Information 2 Hasanovic Teresita. . Referring Provider: Brendon Moody, [address] [place] [address], [address]. tel:[phone] [facility] [address] [facility] [address], [place], [place], [address], [place] tel:[phone] [place] No Information 2 Hasanovic Teresita. . Referring Provider: Brendon Moody, [address] [place] [address], [address]. tel:[phone] [facility] [address], [place], [place], [address], [place] tel:[phone] [place] No Information Dec-0 7- 2 Harig Marleny. . Referring Provider: Brendon Moody [address] [place] [address], [address]. tel:[phone] [facility], [address] [address], [place], [place], [address], [place] tel:[phone] [place] No Information Dec-0 - 2 Harig Marleny. . Referring Provider: Brendon Moody, [address] [place] [address], [address]. tel:[phone] [facility] [address] [address] [facility] [address], [place], [place], [address], [place] tel:[phone] [place] No Information Nov-3 0- 2 Harig Marleny. . Referring Provider: Brendon Moody [address] [place] [address], [address]. tel:[phone] [facility], [address] [address], [place], [place], [address], [place] tel:[phone] [place] No Information Nov-2 2 Harig Marleny. . Referring Provider: Brendon Moody [address] [place] [address], [address]. tel:[phone] [facility] [address] [place], [place] [address] [address], [place], [place], [address], [place] tel:[phone] [place] No Information Nov-2 2 Harig Marleny. . Referring Provider: Brendon Moody [address] [place] [address], [address]. tel:[phone] [facility] [address], [place], [place], [address], [place] tel:[phone] [place] No Information Nov-2 2- 2 Harig Marleny. . Referring Provider: Brendon Moody [address] [place] [address], [address]. tel:[phone] [facility], [address], [place], [place], [address], [place] tel:[phone] [place] No Information Sep-2 2 Savage Esteban. , [place], [place]. Referring Provider: Brendon Moody, [address] [place] [address], [address]. tel:[phone] [facility], [address] [facility] [address], [place], [place], [address], [place] tel:[phone] [place] No Information Sep-2 2 Savage Esteb[place]. , [place], [place]. Referring Provider: Brendon Moody, [address] [place] [address], [address]. tel:[phone] [facility], [address], [place], [place], [address], [place] tel:[phone] [place] No Information Sep-2 2 Savage Esteb[place]. , [place], [place]. Referring Provider: Brendon Moody [address] [place] [address], [address]. tel:[phone] [facility], [address] [facility] [address], [place], [place], [address], [place] tel:[phone] [place] No Information Sep-1 2 Savage Esteb[place]. , [place], [place]. Referring Provider: Brendon Moody [address] [place] [address], [address]. tel:[phone] [facility] [address], [place], [place], [address], [place] tel:[phone] [place] No Information Sep-1 2 Savage Esteb[place]. , [place]. Referring Provider: Brendon Moody [address] [place] [address], [address]. tel:[phone] [facility], [address] [address] [facility] [address], [place], [place], [address], [place] tel:[phone] [place] No Information Sep-1 2 Savage Esteb[place]. , [place]. Referring Provider: Brendon Moody [address] [place] [address], [address]. tel:[phone] [facility], [address], [place], [place], [address], [place] tel:[phone] [place] No Information Sep-0 2 Savage Esteb[place]. , [place]. Referring Provider: Brendon Moody [address] [place] [address], [address]. tel:[phone] [facility], [address], [place], [place], [address], [place] tel:[phone] [place] No Information Sep-0 2 Savage Est[place]. , [place]. Referring Provider: Brendon Moody, [address] [place] [address], [address]. tel:[phone] [facility], [address] [address] [facility] [address], [place], [place], [address], [place] tel:[phone] [place] No Information Mar-3 2 Savage Esteb[place]. , [place]. Referring Provider: Brendon Moody [address] [place] [address], [address]. tel:[phone] [facility], [address] [address] [facility] [address], [place], [place], [address], [place] tel:[phone] [place] No Information Mar- 2 [place] Esteb[place]. , [place]. Referring Provider: Brendon Moody [address] [place] [address], [address]. tel:[phone] [facility], [address], [place], [place], [address], [place] tel:[phone] [place] No Information Mar-2 2 [place]. , [place]. Referring Provider: Brendon Moody [address] [place] [address], [address]. tel:[phone] [facility] [facility], [place], [address], [place] tel:[phone] [place] No Information 2 [place] Est[place]. , [place]. Referring Provider: Brendon Moody [address] [place] [address], [address]. tel:[phone] [facility], [address] [address] [facility] [address], [place], [place], [address], [place] tel:[phone] [place] No Information 2 [place] Est[place]. , [place]. Referring Provider: Brendon Moody [address] [place] [address], [address]. tel:[phone] [facility] [address] [facility] [facility], [place], [place], [address], [place] tel:[phone] [place] No Information 2 Savage Esteb[place]. , [place]. Referring Provider: Brendon Moody [address] [place] [address], [address]. tel:[phone] [facility] [address] [facility] [address], [place], [place], [address], [place] tel:[phone] [place] No Information 2 Savage Esteb[place]. , [place] Referring Provider: Brendon Moody [address] [place] [address], [address]. tel:[phone] [facility] [address] [address] [facility] [address], [place], [place], [address], [place] tel:[phone] [place] No Information Mar-0 2 [place] Esteb[place]. , [place] Referring Provider: Brendon Moody [address] [place] [address], [address]. tel:[phone] [facility] [address] [address] [facility], [place], [address], [place] tel:[phone] [place] No Information 0 2 Savage Esteb[place]. , [place] Referring Provider: Brendon Moody [address] [place] [address], [address]. tel:[phone] [facility], [address] [facility] [address], [place], [place], [address], [place] tel:[phone] [place] No Information 2 [place]. , [place]. Referring Provider: Brendon Moody, [address] [place] [address], [address]. tel:[phone] [facility] [address] [address] [facility], [place], [place], [address], [place] tel:[phone] [place] No Information 2 Savage Esteb[place]. , [place]. Referring Provider: Brendon Moody [address] [place] [address], [address]. tel:[phone] [facility] [address] [facility] [address], [place], [place], [address], tel:[phone] [place] No Information 2 Savage Esteb[place]. , [place]. Referring Provider: Brendon Moody [address] [place] [address], [address]. tel:[phone] [facility] [address] [address], [place], [place], [address], [place] tel:[phone] [place] No Information 2 Savage Esteb[place]. , [place]. Referring Provider: Brendon Moody [address] [place] [address], [address]. tel:[phone] [facility] [address], [place], [place], [address], [place] tel:[phone] [place] No Information 2 Savage Esteb[place]. , [place]. Referring Provider: Brendon Moody [address] [place] [address], [address]. tel:[phone] [facility], [address] [facility] [address], [place], [place], [address], [place] tel:[phone] [place] No Information 2 Modglin Justen. . Referring Provider: Brendon Moody, [address] [place] [address], [address]. tel:[phone] [address], [place], [place], [address], [place] tel:[phone] [place] No Information Wei-2 2 Modglin Justen. . Referring Provider: Brendon Moody, [address] [place] [address], [address]. tel:[phone], [place], [place], [address], [place] tel:[phone] [place] No Information Jan-2 2 Savage Esteb[place]. , [place]. Referring Provider: Brendon Moody, [address] [place] [address], [address]. tel:[phone] [facility] [address] [place], [place] [address] [address], [place], [place], [address], [place] tel:[phone] [place] No Information 0 2 Savage Esteb[place]. , [place]. Referring Provider: Brendon Moody [address] [place] [address], [address]. tel:[phone] [facility] [address] [facility], [place], [place], [address], [place] tel:[phone] [place] No Information 2 Savage Esteb[place]. , [place]. Referring Provider: Brendon Moody, [address] [place] [address], [address]. tel:[phone] [facility] [address], [place], [place], [address], [place] tel:[phone] [place] No Information 2 2 Savage Esteb[place]. , [place], [place]. Referring Provider: Brendon Moody, [address] [place] [address], [address]. tel:[phone] [facility] [address], [place], [place], [address], tel:[phone] [place] No Information 2 [place]. Referring Provider: Brendon Moody, [address] [place], [address]. tel:[phone] [facility], [address], [place], [place], [address], tel:[phone] [place] No Information 2 Hussein [place], . Referring Provider: Brendon Moody, [address] [place], [address]. tel:[phone] Family History Family Member Type Diagnosis Age At Onset No Information Payers Payer name Insurance type Covered green party ID Caionaldo bruno(s) [facility] [id number] Social History Type Description Quantity Date Captured Comments Sex Female Smoking Status No Information Chief Complaint And Reason For Visit No Information Reason For Referral Reason For Referral No Information History Of Present Illness Encounter Date Complaint History Of Prese nt Illness No Information Functional Status Date Functional Assessmen t No Information Instructions Date Instruction Additional Infor mation Giving encouragement to exercise Related to Overweight Dietary needs education Related to Overweight Giving encouragement to exercise Related to Overweight Giving encouragement to exercise Related to Overweight Giving encouragement to exercise Related to Overweight Prescribed activity/exercise edu cation Related to Overweight Assessments Type Assessment Date No Information Patient Care Teams Name Effective Dates (start - stop) Status Members No Information
[2024-12-05 07:47] VITALS: BP 144/71; PULSE 72; RESP 18; TEMP 36.5; O2SAT 97
--- NOTE | 2024-12-05 07:58 | WPDANESEPPF ---
Anes - Initial Pre Proc Eval Procedure: Operation Date: 12/05/24 09:00 Proposed Procedures p Screening Colonoscopy - Brian Clarke MD Date/Time: 12/05/24 07:58 Surgeon: Brian Clarke MD Pre Op Diagnosis: Encounter for screening for malignant neoplasm of Patient Data Age: 64 Gender: F Height: 1.55 m Weight: 69.8 kg Last Vital Signs Temp 36.5 C 12/05/24 07:47 Pulse 72 12/05/24 07:47 Resp 18 12/05/24 07:47 BP 144/71 H 12/05/24 07:47 Pulse Ox 97 12/05/24 07:47 O2 Del Method Room Air 12/05/24 07:47 Allergies Allergy/AdvReac Type Severity Reaction Status Date / Time aspirin AdvReac Mild Abdominal Verified 12/05/24 07:39 discomfort Home Medications ?Medication ?Instructions ?Recorded ?Confirmed ?Type cyanocobalamin (vitamin B-12) 100 100 mcg PO DAILY 05/16/21 11/28/24 History mcg tablet magnesium oxide 200 mg PO BID PRN heartburn 07/08/23 11/28/24 History amlodipine 2.5 mg tablet 2.5 mg PO DAILY #30 tabs 11/25/23 11/28/24 Rx potassium citrate 10 mEq (1,080 2,160 mg PO BID #60 tabs 03/23/24 11/28/24 Rx mg) tablet,extended release cholecalciferol (vitamin D3) 100 1,000 unit PO DAILY 03/30/24 11/28/24 History mcg (4,000 unit) capsule hydrochlorothiazide 12.5 mg tablet See Rx Instructions .Route 09/11/24 11/28/24 Rx .COMPLEX #90 tabs rosuvastatin 20 mg tablet See Rx Instructions .Route 09/13/24 11/28/24 Rx .COMPLEX #90 tabs lamotrigine 25 mg tablet 100 mg PO DAILY 10/23/24 11/28/24 History leflunomide 10 mg tablet 5 mg PO DAILY 10/23/24 11/28/24 History lisinopril 2.5 mg tablet 2.5 mg PO DAILY #90 tabs 11/30/24 Rx Patient hx anesthesia problems: post op nausea/vomiting Family hx anesthesia problems: none Results Review: All pre-operative results and documents have been reviewed as part of the pre-operative evaluation. [facility] Past Medical History Medical History Screening mammogram, encounter for Vaginal delivery x2 Miscarriage High cholesterol Anemia Rheumatoid arthritis Kidney stones GERD (gastroesophageal reflux disease) Megaloblastic anemia Dyslipidemia associated with type 2 diabetes mellitus Essential hypertension Nonalcoholic steatohepatitis Surgical History Surgical History History of brain surgery trigeminal neuralgia History of sinus surgery History of tonsillectomy (~09/2016) History of lithotripsy 2005&2014 History of thyroidectomy (~2005) History of (~1997) History of laparoscopy (~1996) painful periods Family History Family History Sibling Patient's sister is in good health Patient's brother is in good health Father Family history of malignant neoplasm Patient's father is Mother Family history of malignant neoplasm Patient's mother is Social History Social History Smoking status: Never smoker Second hand tobacco smoke exposure: No Alcohol intake: never Substance use: never Substance use type: does not use Do You Feel Safe in your Home?: Yes Lack of Transportation: No Lack of Food: Never True Current Housing: Decline to Answer Concerned About Future Housing: Decline to Answer Difficulty Paying Gas/Electric Bills: Decline to Answer Difficulty Paying for Meds: Decline to Answer Currently Unemployed: Decline to Answer Education: Decline to Answer Difficulty w/ Childcare or Family Care: Decline to Answer Living arrangements: with family Additional living arrangements comments: spouse and daughter Occupation/Education: other 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 Gender identity (if verbalized by the patient): Female Sexual Orientation (if Verbalized by the Patient): Straight or Heterosexual Spiritual care concerns: No Anes - Eval Final PreProcedure Day of Procedure 12/05/24 07:58 Patient weight: overweight Heart: regular rate and rhythm Lungs: clear to auscultation Airway: Mallampati scale class III Neurological: alert and oriented Last oral intake: >/= 8 hours ASA classification: III Emergent: no Anesthetic plan: proceed Anesthesia type and monitoring: general GIVS and standard monitoring Results Review: All pre-operative results and documents have been reviewed as part of the pre-operative evaluation. Informed Consent: The patient's anesthetic plan and its attendant risks and benefits were discussed with the patient/family/POA. Questions were solicited and answers provided to the satisfaction of the patient/family/POA.
[2024-12-05] MEDS: LACTATED RINGERS 1,000 ML 150 ML IV CONT (08:19)
--- NOTE | 2024-12-05 08:36 | PM.HPGS ---
History of Present Illness History of Present Illness Consent: Risks, benefits, and alternatives have been discussed and questions answered. Patient agrees to proceed with procedure. Chief complaint: Encounter for screening for malignant neoplasm of Narrative: Tiny Garcia is a 64 year old female here for screening colonoscopy Review of Systems Review of Systems: All systems reviewed & are unremarkable except as noted in HPI and below PMFSH Past Medical History Medical History Screening mammogram, encounter for Vaginal delivery x2 Miscarriage High cholesterol Anemia Rheumatoid arthritis Kidney stones GERD (gastroesophageal reflux disease) Megaloblastic anemia Dyslipidemia associated with type 2 diabetes mellitus Essential hypertension Nonalcoholic steatohepatitis Surgical History Surgical History History of brain surgery trigeminal neuralgia History of sinus surgery History of tonsillectomy (~09/2016) History of lithotripsy 2005&2014 History of thyroidectomy (~2005) History of (~1997) History of laparoscopy (~1996) painful periods Family History Family History Sibling Patient's sister is in good health Patient's brother is in good health Father Family history of malignant neoplasm Patient's father is Mother Family history of malignant neoplasm Patient's mother is Social History Social History Smoking status: Never smoker Second hand tobacco smoke exposure: No Alcohol intake: never Substance use: never Substance use type: does not use Do You Feel Safe in your Home?: Yes Lack of Transportation: No Lack of Food: Never True Current Housing: Decline to Answer Concerned About Future Housing: Decline to Answer Difficulty Paying Gas/Electric Bills: Decline to Answer Difficulty Paying for Meds: Decline to Answer Currently Unemployed: Decline to Answer Education: Decline to Answer Difficulty w/ Childcare or Family Care: Decline to Answer Living arrangements: with family Additional living arrangements comments: spouse and daughter Occupation/Education: other 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 Gender identity (if verbalized by the patient): Female Sexual Orientation (if Verbalized by the Patient): Straight or Heterosexual Spiritual care concerns: No Meds Home Medications and Allergies Home Medications ?Medication ?Instructions ?Recorded ?Confirmed ?Type cyanocobalamin (vitamin B-12) 100 100 mcg PO DAILY 05/16/21 11/28/24 History mcg tablet magnesium oxide 200 mg PO BID PRN heartburn 07/08/23 11/28/24 History amlodipine 2.5 mg tablet 2.5 mg PO DAILY #30 tabs 11/25/23 11/28/24 Rx potassium citrate 10 mEq (1,080 2,160 mg PO BID #60 tabs 03/23/24 11/28/24 Rx mg) tablet,extended release cholecalciferol (vitamin D3) 100 1,000 unit PO DAILY 03/30/24 11/28/24 History mcg (4,000 unit) capsule hydrochlorothiazide 12.5 mg tablet See Rx Instructions .Route 09/11/24 11/28/24 Rx .COMPLEX #90 tabs rosuvastatin 20 mg tablet See Rx Instructions .Route 09/13/24 11/28/24 Rx .COMPLEX #90 tabs lamotrigine 25 mg tablet 100 mg PO DAILY 10/23/24 11/28/24 History leflunomide 10 mg tablet 5 mg PO DAILY 10/23/24 11/28/24 History lisinopril 2.5 mg tablet 2.5 mg PO DAILY #90 tabs 11/30/24 Rx Allergies Allergy/AdvReac Type Severity Reaction Status Date / Time aspirin AdvReac Mild Abdominal Verified 12/05/24 07:39 discomfort Vital Signs Vital Signs - 24 hr 12/05/24 07:47 Temperature 97.7 F Pulse Rate 72 Respiratory Rate 18 Blood Pressure 144/71 H Pulse Oximetry 97 Oxygen Delivery Room Air Exam Const: General: comfortable and no acute distress HENMT: Face/Nose/Sinus: Normal nares present Eyes: General: appearance normal, both eyes and all related structures Neck: Neck: no JVD Resp: Auscultation: clear to auscultation bilaterally Cardio: Rate: regular rate Rhythm: regular rhythm GI: Inspection: non-distended GI Palp: Yes Soft to palpation Skin: General skin exam: normal color Neuro: Speech: normal speech Extrem: General: normal to inspection Psych: Mental Status: mental status grossly normal Assessment and Plan Assessment and plan (1) Colon cancer screening: Code(s): Z12.11 - Encounter for screening for malignant neoplasm of colon Status: Acute Assessment and Plan: colonoscopy
[2024-12-05 08:55] VITALS: BP 143/72; PULSE 63; RESP 18; TEMP 36.5; O2SAT 96
[2024-12-05 09:05] VITALS: BP 111/55; PULSE 64; RESP 18; TEMP 36.5; O2SAT 96
[2024-12-05 09:15] VITALS: BP 139/66; PULSE 58; RESP 17; TEMP 36.5; O2SAT 97
== END 2024-12-05 09:39 | disposition home or self-care (01) ==
PROVIDERS: PCP Family Medicine; Referring Provider Family Medicine; Visit Provider Internal Medicine Gastroenterology
PROC: 0DJD8ZZ Inspection of Lower Intestinal Tract, Via Natural or Artificial Opening Endoscopic (ICD-10-PCS; CPT 45378; principal; 2024-12-05 09:00)
DX: Z12.11 Encounter for screening for malignant neoplasm of colon (principal); K64.8 Other hemorrhoids; I10 Essential (primary) hypertension; E78.00 Pure hypercholesterolemia, unspecified; K21.9 Gastro-esophageal reflux disease without esophagitis; D53.1 Other megaloblastic anemias, not elsewhere classified; E11.9 Type 2 diabetes mellitus without complications; K75.81 Nonalcoholic steatohepatitis (NASH); M06.9 Rheumatoid arthritis, unspecified; Z98.890 Other specified postprocedural states; Z87.442 Personal history of urinary calculi; Z80.9 Family history of malignant neoplasm, unspecified
CPT/HCPCS: 45378; J2704; J7120

== ENCOUNTER 2025-05-21 14:26 | Outpatient (CLI) | payer BC, SELFPAY ==
--- NOTE | ~2025-05-21 | MM_ITS ---
EXAMINATION: MM screening donnie BI w yudy HISTORY: Screening TECHNIQUE: Craniocaudal and mediolateral oblique 3-D tomosynthesis images were obtained and synthetic 2-D images were generated. CAD analysis was submitted and interpreted. COMPARISON: Comparison to multiple prior studies sequentially, with oldest reviewed study dated 12/28/2017. BREAST PARENCHYMAL COMPOSITION: Dense: The breasts are heterogeneously dense, which may obscure small masses FINDINGS: There is no evidence of suspicious mass, calcification, or architectural distortion to suggest malignancy in either breast. There has been no suspicious interval change. IMPRESSION: 1. No mammographic evidence of malignancy. 2. Recommend routine screening mammography in one year. BI-RADS Category 1: Negative Reviewed, dictated and finalized at location B.
--- NOTE | ~2025-05-21 | DEXA_ITS ---
Bone Density Report Name: JOE CARRERA Age: 64 Sex: Female Ethnicity: Date of : 1960 Indication: osteopenia; rheumatoid arthritis; Referring Provider: IDALIA RICO Study: Bone densitometry was performed. Exam Date: May 21, 2025 Accession number: [id number] Bone Density: Region BMD T-score Z-score Classification AP Spine(L1-L4) 0.855 -1.7 -0.1 Osteopenia Femoral Neck (Left) 0.566 -2.5 -1.1 Osteoporosis Total Hip (Left) 0.826 -1.0 0.2 Normal Femoral Neck (Right) 0.663 -1.7 -0.2 Osteopenia Total Hip (Right) 0.773 -1.4 -0.2 Osteopenia Total Hip Mean 0.800 -1.2 0.0 Osteopenia World Health Organization criteria for BMD impression classify patients as: Normal (T-score at or above -1.0), Osteopenia (T-score between -1.0 and -2.5), or Osteoporosis (T-score at or below -2.5). 10-year Fracture Risk: FRAX not reported because: Some T-score for Spine Total or Hip Total or Femoral Neck at or below -2.5 Previous Exams: -- Region Exam Age BMD T-score BMD Change BMD Change Date g/cm2 vs Baseline vs Previous -- AP Spine (L1-L4) 05/21/2025 64 0.855 -1.7 6.1%* 4.2%* 09/22/2021 60 0.820 -2.1 1.8% 1.8% 03/06/2019 58 0.806 -2.2 Total Hip(Left) 05/21/2025 64 0.826 -1.0 -4.3%* -2.8% 09/22/2021 60 0.850 -0.8 -1.5% -1.5% 03/06/2019 58 0.863 -0.6 Total Hip(Right) 05/21/2025 64 0.773 -1.4 -7.6%* -5.7%* 09/22/2021 60 0.820 -1.0 -2.1% -2.1% 03/06/2019 58 0.837 -0.9 -- *Denotes significance at 95% confidence level, LSC for AP Spine = 0.022 g/cm2, LSC for Total Hip = 0.027 g/cm2 Clinical Information Provided by Patient: Has rheumatoid arthritis Has used the following medications: Vitamin D Patient maximum height was 61 Menopause Age: 46 No regular weight bearing exercise Onset of menses at age 14 Number of children 3 Impression: The patient has osteoporosis, based on the Left Femoral Neck T-score. The BMD for the Total Hip(Right) decreased, changing by -5.7% since the last DXA exam. Discussion: INCREASED RISK OF FRACTURE. BONE DENSITY IS UNDESIRABLY LOW AT ONE OR MORE SKELETAL SITES, CONSISTENT WITH POSTMENOPAUSAL OSTEOPOROSIS. This patient's lowest T-score meets the World Health Organization's (WHO) criteria for osteoporosis at one or more sites (T-score -2.5 or below). In untreated patients, the risk of osteoporotic fracture increases approximately two-fold for each 1.0 SD decrease in T-score. Low bone density is not the only risk factor for fracture; also consider factors such as patient's age, frailty or poor health, risk of falling, risk of injury, previous osteoporotic fracture, family history of osteoporosis, cigarette smoking, low body weight, etc. Not everyone with low bone mineral density has osteoporosis; osteomalacia and other metabolic bone disorders should also be considered. Patients who have osteoporosis should be evaluated for specific diseases and conditions (secondary causes) that may cause or contribute to bone loss. The [place] Association [employer] Clinical Endocrinologists (AACE) and National Osteoporosis Foundation (NOF) recommend pharmacologic intervention for all postmenopausal women whose T-score is in this range. The patient should follow a healthful lifestyle (good nutrition with adequate calcium and vitamin D, and appropriate weight-bearing exercise). Follow-Up: Consider a repeat BMD and Vertebral Fracture Assessment (VFA) exam in 2 years or sooner if medically necessary, to reassess this patient's status. Reported by: JASPAL on 05/21/2025 3:13:00 PM. Reviewed, dictated and finalized at location A.
== END 2025-05-21 14:27 | disposition home or self-care (01) ==
PROVIDERS: PCP Family Medicine; Visit Provider Obstetrics & Gynecology
DX: Z12.31 Encounter for screening mammogram for malignant neoplasm of breast (principal); M85.88 Other specified disorders of bone density and structure, other site; M81.0 Age-related osteoporosis without current pathological fracture; M85.851 Other specified disorders of bone density and structure, right thigh
CPT/HCPCS: 77063; 77067; 77080

== ENCOUNTER 2025-05-28 14:36 | Outpatient (CLI) | payer BC, SELFPAY ==
--- NOTE | ~2025-05-28 | XR_ITS ---
EXAMINATION: XR abdomen/kub 1V DATE: 05/28/2025 14:59 INDICATION: Calculus of kidney TECHNIQUE: A supine view of the abdomen on 2 radiographs was obtained. COMPARISON: None. FINDINGS: Moderate to large amount of stool in the nondilated large bowel. Moderate amount of air in nondilated large bowel. Small amount of air in nondilated small bowel. There are a few less than 1.0 cm calcifications projecting over the pelvis which may represent phleboliths, however, a distal ureteral stone or bladder stone or possible. There is a 1.6 x 0.9 cm oval radiopaque density projecting of the left transverse process of L4 possibly a calcification. Mild levoconvex curvature of the lumbar spine. IMPRESSION: 1. Nonspecific abdomen with a moderate to large amount of stool. 2. There is a 1.6 x 0.9 cm oval radiopaque density projecting of the left transverse process of L4 possibly a calcification. Consider a CT for further assessment. Reviewed, dictated and finalized at location Q. IMPRESSION: 1. Nonspecific abdomen with a moderate to large amount of stool. 2. There is a 1.6 x 0.9 cm oval radiopaque density projecting of the left trans verse process of L4 possibly a calcification. Consider a CT for further assessm ent.
== END 2025-05-28 14:37 | disposition home or self-care (01) ==
LOC: MICIMG 14:38
PROVIDERS: PCP Family Medicine; Visit Provider Internal Medicine Nephrology
DX: N20.0 Calculus of kidney (principal)
CPT/HCPCS: 74018

== ENCOUNTER 2025-07-12 08:59 | Outpatient (CLI) | payer BC, SELFPAY ==
--- NOTE | ~2025-07-12 | CT_ITS ---
EXAM/PROCEDURE: CT abdomen pelvis wo con HISTORY: Epigastric pain, low back pain, stone COMPARISON: February 01, 2022 TECHNIQUE: Noncontrast CT of the abdomen and pelvis performed. FINDINGS: In the lung bases, patchy mosaic form groundglass opacification present but no focal consolidation or effusion. Mild cardiomegaly with trace pericardial effusion within the field of view. In the abdomen and pelvis, the bowel gas pattern is nonobstructive with no free air free fluid or pneumatosis. Moderate amount of stool extends to the cecum. No grossly inflamed appendix or AAA. Bilateral nephrocalcinosis similar to the previous exam with no hydroureteronephrosis. No obstructing ureteral stones or urinary bladder stones. Urinary bladder appears normal for technique. Uterus and adnexal regions unremarkable. Slight pericolonic strandy changes in and about the hepatic flexure noted but not grossly changed from the previous exam. No gross CT evidence of acute cholecystitis or pancreatitis. Spleen liver stomach and pancreas appear stable for technique. 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 The stomach is unopacified and nondistended, not well evaluated but no gross acute abnormality seen. No bulky lymphadenopathy or masses seen. Diffuse degenerative changes in the bones which otherwise appear intact. Extraperitoneal soft tissues appear within normal limits. IMPRESSION: 1. Directed noncontrast exam demonstrating mild strandy changes about the right hemicolon could represent mild colitis, however the appearance is similar to the 2021 exam and may be chronic. No acute surgical abnormality. 2. Patchy groundglass opacification in lung bases could be associated with small airways disease or atypical infectious/inflammatory process. Reviewed, dictated and finalized at location A. LATORY INTERN IMPRESSION: 1. Directed noncontrast exam demonstrating mild strandy changes about the right hemicolon could represent mild colitis, however the appearance is similar to t 2021 exam and may be chronic. No acute surgical abnormality. 2. Patchy groundglass opacification in lung bases could be associated with smal l airways disease or atypical infectious/inflammatory process.
== END 2025-07-12 09:00 | disposition home or self-care (01) ==
LOC: MICIMG 09:00
PROVIDERS: PCP Family Medicine; Visit Provider Internal Medicine Nephrology
DX: R10.13 Epigastric pain (principal); R91.8 Other nonspecific abnormal finding of lung field
CPT/HCPCS: 74176

== ENCOUNTER 2025-07-17 12:43 | Outpatient (CLI) | payer BC, SELFPAY ==
--- NOTE | ~2025-07-17 | XR_ITS ---
XR thoracic spine 3V Indication: M54.9 - Dorsalgia, unspecified Comparison: None Findings: Mild dextroconvex scoliosis. Moderate loss of vertebral height throughout. No acute fracture or subluxation. Mild loss of disc height throughout. Soft tissues unremarkable Impression: No acute abnormality. Reviewed, dictated and finalized at location P. USEMENT PARK WORKER Impression: No acute abnormality.
--- NOTE | ~2025-07-17 | XR_ITS ---
XR_CERV2-3V_CR Indication: M54.2 - Cervicalgia Comparison: None Findings: The vertebral heights are intact. No fracture or subluxation. Moderate loss of disc height at C5-6. Soft tissues unremarkable Impression: No acute abnormality. Reviewed, dictated and finalized at location P. ING MACHINE FEEDER Impression: No acute abnormality.
--- NOTE | ~2025-07-17 | XR_ITS ---
XR lumbar spine 2-3V Indication: M54.50 - Low back pain, unspecified Comparison: None Findings: Levoconvex scoliosis. No fracture or subluxation identified. Moderate loss of disc at L5-S1. Soft tissues unremarkable Impression: No acute abnormality. Reviewed, dictated and finalized at location P. UNTING ASSOCIATE Impression: No acute abnormality.
== END 2025-07-17 12:44 | disposition home or self-care (01) ==
PROVIDERS: PCP Family Medicine; Visit Provider Nurse Practitioner Family
DX: M54.50 Low back pain, unspecified (principal); M54.2 Cervicalgia
CPT/HCPCS: 72040; 72072; 72100